=== PATIENT | male | born 1980 | race Caucasian/White ===

== ENCOUNTER 2017-03-23 14:39 | Emergency (ER) | payer BC ==
[2017-03-23 14:44] VITALS: RESP 18
[2017-03-23 15:15] LABS: Basophils # (A) 0.1 k/uL (0-0.2); Basophils % (A) 1 %; Eosinophils # (A) 0.4 k/uL (0-0.7); Eosinophils % (A) 5 %; HCT 44.7 % (39.0-53.0); HDW 2.48; HGB 15.8 gm/dL (13.0-17.5); Luc # (Auto) 0.16; Luc % (Auto) 2; Lymphocytes # (A) 1.5 k/uL (1.0-4.8); Lymphocytes % (A) 17 %; MCH 31.5 pg (25.0-35.0); MCHC 35.3 g/dL (31.0-37.0); MCV 89.2 fL (80.0-100.0); Mean Platelet Volume 7.4; Monocytes # (A) 0.5 k/uL (0-1.0); Monocytes % (A) 6 %; Neutrophils # (A) 6.2 k/uL (1.3-7.7); Neutrophils % (A) 70 %; RBC 5.01 m/uL (4.30-5.90); RDW 12.7 % (11.5-15.5); WBC 8.8 k/uL (3.8-10.6); WBC (Perox) 8.24
--- NOTE | 2017-03-23 15:18 | XR ---
EXAMINATION TYPE: XR chest 2V DATE OF EXAM: 03/23/2017 COMPARISON: NONE HISTORY: Chest pain TECHNIQUE: Frontal and lateral views of the chest are obtained. FINDINGS: There is no focal air space opacity. No evidence for pneumothorax. No pleural effusion. The cardiac silhouette size is within normal limits. The osseous structures are grossly intact. IMPRESSION: 1. No acute cardiopulmonary process.
[2017-03-23 15:26] LABS: ALT 55 U/L (21-72); AST 41 U/L (17-59); Alkaline Phosphatase 98 U/L (38-126); Anion Gap 13 mmol/L; Blood Urea Nitrogen 11 mg/dL (9-20); Calcium 9.8 mg/dL (8.4-10.2); Carbon Dioxide 23 mmol/L (22-30); Chloride 103 mmol/L (98-107); Glucose 92 mg/dL (74-99); Non-African American GFR(MDRD) >60 (>60 ml/min/1.73 sqM); Potassium 4.3 mmol/L (3.5-5.1); Sodium 139 mmol/L (137-145); Total Bilirubin 0.7 mg/dL (0.2-1.3)
--- NOTE | 2017-03-23 16:41 | ED ---
General Adult HPI - General Chief complaint: Chest Pain Stated complaint: Chest Pain Time Seen by Provider: 03/23/17 14:46 Source: patient, RN notes reviewed Mode of arrival: ambulatory Limitations: no limitations - History of Present Illness Initial comments: 36-year-old male with past medical history of anxiety presents with a six-hour history of left-sided chest pain. Patient describes the pain as sharp in nature. Worse with deep inspiration. Patient denies any radiating symptoms. Denies diaphoresis. Does state he has had some shortness of breath and dizziness associated with his chest pain. Constant in nature since 8 AM this morning. Patient is an occasional tobacco user, does not use tobacco daily. No history of DVT or PE. Patient has a family history of CAD in his father in his late 50s. Denies significant alcohol consumption. Patient did not take any pain medication. He called his primary care physician to make an appointment and was instructed to come to the emergency department. - Related Data Home Medications Medication Instructions Recorded Confirmed ALPRAZolam [ALPRAZolam] 1 mg PO DAILY PRN 03/23/17 03/23/17 Clindamycin [Cleocin] 150 mg PO Q6H 03/23/17 03/23/17 HYDROcodone/APAP 5-325MG [[place] 1 tab PO Q4H PRN 03/23/17 03/23/17 5-325] Ibuprofen [Ibuprofen] 600 mg PO Q6H PRN 03/23/17 03/23/17 Previous Rx's Medication Instructions Recorded ALPRAZolam [Xanax] 1 mg PO DAILY PRN #7 tab 03/23/17 Ibuprofen [Motrin] 600 mg PO Q8HR PRN #24 tab 03/23/17 Allergies Allergy/AdvReac Type Severity Reaction Status Date / Time No Known Allergies Allergy Verified 03/23/17 15:25 Review of Systems ROS Statement: Those systems with pertinent positive or pertinent negative responses have been documented in the HPI. ROS Other: All systems not noted in ROS Statement are negative. Constitutional: Denies: fever, chills Respiratory: Denies: cough, hemoptysis Cardiovascular: Reports: chest pain Gastrointestinal: Denies: abdominal pain, nausea, vomiting Past Medical History Past Medical History: No Reported History History of Any Multi-Drug Resistant Organisms: None Reported Past Surgical History: Orthopedic Surgery Additional Past Surgical History / Comment(s): knee Past Psychological History: Anxiety Smoking Status: Light tobacco smoker Past Alcohol Use History: Occasional Past Drug Use History: None Reported General Exam Limitations: no limitations General appearance: alert, in no apparent distress, anxious Head exam: Present: atraumatic, normocephalic Eye exam: Present: PERRL, EOMI ENT exam: Present: normal exam Respiratory exam: Present: normal lung sounds bilaterally. Absent: respiratory distress, wheezes, rales Cardiovascular Exam: Present: regular rate, normal rhythm. Absent: systolic murmur, diastolic murmur GI/Abdominal exam: Present: soft. Absent: distended, tenderness Extremities exam: Absent: pedal edema, calf tenderness Neurological exam: Present: alert, oriented X3 Psychiatric exam: Present: normal affect, normal mood Skin exam: Present: warm, dry Course Vital Signs 03/23/17 03/23/17 14:41 15:47 Temperature 98.6 F Pulse Rate 75 71 Respiratory 18 18 Rate Blood Pressure 140/90 145/87 O2 Sat by Pulse 97 98 Oximetry EKG Findings - EKG Comments: EKG Findings:: EKG obtained at 1450: Normal sinus rhythm with a ventricular rate of 70, TX interval 162, QRS duration 88, QTC is 423, there is no ST segment elevation or depression, no T-wave abnormalities noted. Medical Decision Making - Medical Decision Making 36-year-old male with no significant past medical history presents with sharp anterior left-sided chest pain. Chest pain began while patient was at work. He does have a history of anxiety and has been out of his Xanax for several days. 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 This may be related to some degree of increased anxiety. Patient has no calf swelling, lungs are clear, heart is regular with no murmur or rubs. Patient's in no acute distress. Laboratory studies including troponin and d- dimer are unremarkable. Given the time course of 6 hours and constant symptoms throughout this time a single troponin is sufficient. EKG shows normal sinus rhythm with no ST segment elevation or depression. Chest x-ray is negative for acute intrathoracic process. Diagnosis: Chest pain Patient will follow-up with his primary care physician in the next several days. He is encouraged to return to the emergency department with worsening or changing symptoms. - Lab Data Result diagrams: 03/23/17 15:02 06/28/17 15:02 Lab Results 03/23/17 03/23/17 03/23/17 Range/Units 15:02 15:02 15:02 WBC 8.8 (3.8-10.6) k/uL RBC 5.01 (4.30-5.90) m/uL Hgb 15.8 (13.0-17.5) gm/dL Hct 44.7 (39.0-53.0) % MCV 89.2 (80.0-100.0) fL MCH 31.5 (25.0-35.0) pg MCHC 35.3 (31.0-37.0) g/dL RDW 12.7 (11.5-15.5) % Plt Count 288 (150-450) k/uL Neutrophils % 70 % Lymphocytes % 17 % Monocytes % 6 % Eosinophils % 5 % Basophils % 1 % Neutrophils # 6.2 (1.3-7.7) k/uL Lymphocytes # 1.5 (1.0-4.8) k/uL Monocytes # 0.5 (0-1.0) k/uL Eosinophils # 0.4 (0-0.7) k/uL Basophils # 0.1 (0-0.2) k/uL D-Dimer <0.17 (<0.60) mg/L FEU Sodium 139 (137-145) mmol/L Potassium 4.3 (3.5-5.1) mmol/L Chloride 103 (98-107) mmol/L Carbon Dioxide 23 (22-30) mmol/L Anion Gap 13 mmol/L BUN 11 (9-20) mg/dL Creatinine 0.90 (0.66-1.25) mg/dL Est GFR (MDRD) Af Amer >60 (>60 ml/min/1.73 sqM) Est GFR (MDRD) Non-Af >60 (>60 ml/min/1.73 sqM) Glucose 92 (74-99) mg/dL Calcium 9.8 (8.4-10.2) mg/dL Magnesium 2.0 (1.6-2.3) mg/dL Total Bilirubin 0.7 (0.2-1.3) mg/dL AST 41 (17-59) U/L ALT 55 (21-72) U/L Alkaline Phosphatase 98 (38-126) U/L Troponin I (0.000-0.034) ng/mL Total Protein 8.0 (6.3-8.2) g/dL Albumin 5.0 (3.5-5.0) g/dL 03/23/17 Range/Units 15:02 WBC (3.8-10.6) k/uL RBC (4.30-5.90) m/uL Hgb (13.0-17.5) gm/dL Hct (39.0-53.0) % MCV (80.0-100.0) fL MCH (25.0-35.0) pg MCHC (31.0-37.0) g/dL RDW (11.5-15.5) % Plt Count (150-450) k/uL Neutrophils % % Lymphocytes % % Monocytes % % Eosinophils % % Basophils % % Neutrophils # (1.3-7.7) k/uL Lymphocytes # (1.0-4.8) k/uL Monocytes # (0-1.0) k/uL Eosinophils # (0-0.7) k/uL Basophils # (0-0.2) k/uL D-Dimer (<0.60) mg/L FEU Sodium (137-145) mmol/L Potassium (3.5-5.1) mmol/L Chloride (98-107) mmol/L Carbon Dioxide (22-30) mmol/L Anion Gap mmol/L BUN (9-20) mg/dL Creatinine (0.66-1.25) mg/dL Est GFR (MDRD) Af Amer (>60 ml/min/1.73 sqM) Est GFR (MDRD) Non-Af (>60 ml/min/1.73 sqM) Glucose (74-99) mg/dL Calcium (8.4-10.2) mg/dL Magnesium (1.6-2.3) mg/dL Total Bilirubin (0.2-1.3) mg/dL AST (17-59) U/L ALT (21-72) U/L Alkaline Phosphatase (38-126) U/L Troponin I <0.012 (0.000-0.034) ng/mL Total Protein (6.3-8.2) g/dL Albumin (3.5-5.0) g/dL Disposition Clinical Impression: Pleuritic pain, Chest pain Disposition: HOME SELF-CARE Instructions: Chest Pain (ED) Additional Instructions: Patient will return to the emergency department with worsening or changing symptoms. Prescriptions: ALPRAZolam [Xanax] 1 mg PO DAILY PRN #7 tab PRN Reason: Anxiety Ibuprofen [Motrin] 600 mg PO Q8HR PRN #24 tab PRN Reason: Pain Referrals: Enoc Vegas MD [Primary Care Provider] - 1-2 days
[2017-03-23 16:59] VITALS: BP 138/94; PULSE 80; TEMP 98.7
== END 2017-03-23 16:56 | disposition home or self-care (01) ==
LOC: EC 14:39
DX: R07.81 Pleurodynia (principal); R42 Dizziness and giddiness; R06.02 Shortness of breath; F17.200 Nicotine dependence, unspecified, uncomplicated; Z79.899 Other long term (current) drug therapy
CPT/HCPCS: 36415; 71020; 80053; 83735; 84484; 85025; 85379; 93005; 99285

== ENCOUNTER 2018-07-02 08:04 | Inpatient (IN) | payer BC ==
[2018-07-02] MEDS ORDERED: SODIUM CHLORIDE 0.9% 1,000 ML IV STA (08:11)
--- NOTE | 2018-07-02 08:18 | ED ---
Seizure HPI - General Stated Complaint: Altered Mental Status Time Seen by Provider: 07/02/18 08:04 Source: patient, EMS, RN notes reviewed Mode of arrival: EMS - History of Present Illness Initial Comments: Is a 37-year-old male with a history of anxiety who apparently is being weaned off his medication who was found by his fiance to be gurgling when she found him in the bedroom with possible seizure activity lasting one or 2 minutes. EMS was summoned he was seen to be flailing around in bed briefly and then was very confused for a period of time. No urinary incontinence no tongue biting. No prior history of seizure disorder though he does have a younger brother and had seizure ago. No trauma no drugs or alcohol reported no new exposure to chemicals. 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 He does still somewhat nauseated and lightheaded at this time. He currently is awake and alert. No other modifying factors or complaints at this time MD Complaint: possible seizure - Related Data Home Medications Medication Instructions Recorded Confirmed ALPRAZolam 1 mg PO DAILY PRN 03/23/17 03/23/17 Clindamycin [Cleocin] 150 mg PO Q6H 03/23/17 03/23/17 HYDROcodone/APAP 5-325MG [[place] 1 tab PO Q4H PRN 03/23/17 03/23/17 5-325] Ibuprofen 600 mg PO Q6H PRN 03/23/17 03/23/17 Previous Rx's Medication Instructions Recorded ALPRAZolam [Xanax] 1 mg PO DAILY PRN #7 tab 03/23/17 Ibuprofen [Motrin] 600 mg PO Q8HR PRN #24 tab 03/23/17 Allergies Allergy/AdvReac Type Severity Reaction Status Date / Time No Known Allergies Allergy Verified 03/23/17 15:25 Review of Systems ROS Statement: Those systems with pertinent positive or pertinent negative responses have been documented in the HPI. ROS Other: All systems not noted in ROS Statement are negative. Past Medical History Past Medical History: No Reported History History of Any Multi-Drug Resistant Organisms: None Reported Past Surgical History: Orthopedic Surgery Additional Past Surgical History / Comment(s): knee Past Psychological History: Anxiety Smoking Status: Light tobacco smoker Past Alcohol Use History: Occasional Past Drug Use History: None Reported General Exam - General Exam Comments Initial Comments: This is a well-developed well-nourished awake alert oriented 3 male General appearance: alert, lethargic Head exam: Present: atraumatic, normocephalic, normal inspection Eye exam: Present: normal appearance, PERRL, EOMI. Absent: scleral icterus, conjunctival injection, periorbital swelling ENT exam: Present: normal exam, mucous membranes moist Neck exam: Present: normal inspection. Absent: tenderness, meningismus, lymphadenopathy Respiratory exam: Present: normal lung sounds bilaterally. Absent: respiratory distress, wheezes, rales, rhonchi, stridor Cardiovascular Exam: Present: regular rate, normal rhythm, normal heart sounds. Absent: systolic murmur, diastolic murmur, rubs, gallop, clicks GI/Abdominal exam: Present: soft, normal bowel sounds. Absent: distended, tenderness, guarding, rebound, rigid Extremities exam: Present: normal inspection, full ROM, normal capillary refill. Absent: tenderness, pedal edema, joint swelling, calf tenderness Back exam: Present: normal inspection Neurological exam: Present: alert, oriented X3, CN II-XII intact Psychiatric exam: Present: normal affect, normal mood Skin exam: Present: warm, dry, intact, normal color. Absent: rash Course Vital Signs 07/02/18 08:06 Temperature 98.2 F Pulse Rate 64 Respiratory 16 Rate Blood Pressure 115/61 O2 Sat by Pulse 99 Oximetry - Reevaluation(s) Reevaluation #1: 07/02/18 08:17 Further information the patient has been taking up to 100 pills of antidiarrheal medication per day he did not take any yesterday. This information initially obtained from Talisha garcia nurse Medical Decision Making - Medical Decision Making I did discuss the findings with the patient and his fiance. Patient be admitted for evaluation for seizure - Lab Data Result diagrams: 07/02/18 08:10 07/02/18 08:10 Lab Results 07/02/18 07/02/18 07/02/18 Range/Units 08:10 08:10 08:10 WBC 7.6 (3.8-10.6) k/uL RBC 4.69 (4.30-5.90) m/uL Hgb 13.3 (13.0-17.5) gm/dL Hct 41.0 (39.0-53.0) % MCV 87.3 (80.0-100.0) fL MCH 28.3 (25.0-35.0) pg MCHC 32.5 (31.0-37.0) g/dL RDW 12.8 (11.5-15.5) % Plt Count 274 (150-450) k/uL Neutrophils % 59 % Lymphocytes % 25 % Monocytes % 8 % Eosinophils % 5 % Basophils % 1 % Neutrophils # 4.5 (1.3-7.7) k/uL Lymphocytes # 1.9 (1.0-4.8) k/uL Monocytes # 0.6 (0-1.0) k/uL Eosinophils # 0.4 (0-0.7) k/uL Basophils # 0.0 (0-0.2) k/uL Sodium 140 (137-145) mmol/L Potassium 4.4 (3.5-5.1) mmol/L Chloride 104 (98-107) mmol/L Carbon Dioxide 25 (22-30) mmol/L Anion Gap 11 mmol/L BUN 14 (9-20) mg/dL Creatinine 0.90 (0.66-1.25) mg/dL Est GFR (CKD-EPI)AfAm >90 (>60 ml/min/1.73 sqM) Est GFR (CKD-EPI)NonAf >90 (>60 ml/min/1.73 sqM) Glucose 154 H (74-99) mg/dL Calcium 9.5 (8.4-10.2) mg/dL Magnesium 2.1 (1.6-2.3) mg/dL Total Bilirubin 0.4 (0.2-1.3) mg/dL AST 37 (17-59) U/L ALT 30 (21-72) U/L Alkaline Phosphatase 152 H (38-126) U/L Total Creatine Kinase 98 (55-170) U/L CK-MB (CK-2) 0.8 (0.0-2.4) ng/mL CK-MB (CK-2) Rel Index 0.8 Troponin I <0.012 (0.000-0.034) ng/mL Total Protein 7.6 (6.3-8.2) g/dL Albumin 4.2 (3.5-5.0) g/dL TSH 2.240 (0.465-4.680) mIU/L Salicylates <1.0 mg/dL Urine Opiates Screen (NotDetected) Ur Oxycodone Screen (NotDetected) Urine Methadone Screen (NotDetected) Ur Propoxyphene Screen (NotDetected) Acetaminophen <10.0 ug/mL Ur Barbiturates Screen (NotDetected) U Tricyclic Antidepress (NotDetected) Ur Phencyclidine Scrn (NotDetected) Ur Amphetamines Screen (NotDetected) U Methamphetamines Scrn (NotDetected) U Benzodiazepines Scrn (NotDetected) Urine Cocaine Screen (NotDetected) U Marijuana (THC) Screen (NotDetected) Serum Alcohol <10 mg/dL 07/02/18 Range/Units 08:10 WBC (3.8-10.6) k/uL RBC (4.30-5.90) m/uL Hgb (13.0-17.5) gm/dL Hct (39.0-53.0) % MCV (80.0-100.0) fL MCH (25.0-35.0) pg MCHC (31.0-37.0) g/dL RDW (11.5-15.5) % Plt Count (150-450) k/uL Neutrophils % % Lymphocytes % % Monocytes % % Eosinophils % % Basophils % % Neutrophils # (1.3-7.7) k/uL Lymphocytes # (1.0-4.8) k/uL Monocytes # (0-1.0) k/uL Eosinophils # (0-0.7) k/uL Basophils # (0-0.2) k/uL Sodium (137-145) mmol/L Potassium (3.5-5.1) mmol/L Chloride (98-107) mmol/L Carbon Dioxide (22-30) mmol/L Anion Gap mmol/L BUN (9-20) mg/dL Creatinine (0.66-1.25) mg/dL Est GFR (CKD-EPI)AfAm (>60 ml/min/1.73 sqM) Est GFR (CKD-EPI)NonAf (>60 ml/min/1.73 sqM) Glucose (74-99) mg/dL Calcium (8.4-10.2) mg/dL Magnesium (1.6-2.3) mg/dL Total Bilirubin (0.2-1.3) mg/dL AST (17-59) U/L ALT (21-72) U/L Alkaline Phosphatase (38-126) U/L Total Creatine Kinase (55-170) U/L CK-MB (CK-2) (0.0-2.4) ng/mL CK-MB (CK-2) Rel Index Troponin I (0.000-0.034) ng/mL Total Protein (6.3-8.2) g/dL Albumin (3.5-5.0) g/dL TSH (0.465-4.680) mIU/L Salicylates mg/dL Urine Opiates Screen Not Detected (NotDetected) Ur Oxycodone Screen Not Detected (NotDetected) Urine Methadone Screen Not Detected (NotDetected) Ur Propoxyphene Screen Not Detected (NotDetected) Acetaminophen ug/mL Ur Barbiturates Screen Not Detected (NotDetected) U Tricyclic Antidepress Not Detected (NotDetected) Ur Phencyclidine Scrn Not Detected (NotDetected) Ur Amphetamines Screen Not Detected (NotDetected) U Methamphetamines Scrn Not Detected (NotDetected) U Benzodiazepines Scrn Detected H (NotDetected) Urine Cocaine Screen Not Detected (NotDetected) U Marijuana (THC) Screen Not Detected (NotDetected) Serum Alcohol mg/dL - EKG Data -: EKG Interpreted by Pr EKG shows normal: sinus rhythm (Normal sinus rhythm of 70. Interval 200 QRS duration 112 QT since QTC 366/395 nonspecific T-wave configuration.) - Radiology Data Radiology results: report reviewed (I did review the imaging and report no acute findings.), image reviewed Disposition Clinical Impression: Seizure Disposition: ADMITTED IP TO THIS [facility] Condition: Stable Referrals: Enoc Vegas MD [Primary Care Provider] - 1-2 days
[2018-07-02 08:37] LABS: Basophils % (A) 1 %; Eosinophils # (A) 0.4 k/uL (0-0.7); Eosinophils % (A) 5 %; HGB 13.3 gm/dL (13.0-17.5); Lymphocytes # (A) 1.9 k/uL (1.0-4.8); Lymphocytes % (A) 25 %; MCH 28.3 pg (25.0-35.0); MCHC 32.5 g/dL (31.0-37.0); MCV 87.3 fL (80.0-100.0); Mean Platelet Volume 6.8; Monocytes # (A) 0.6 k/uL (0-1.0); Monocytes % (A) 8 %; Neutrophils # (A) 4.5 k/uL (1.3-7.7); Neutrophils % (A) 59 %; Platelet Count 274 k/uL (150-450); RBC 4.69 m/uL (4.30-5.90); RDW 12.8 % (11.5-15.5); WBC 7.6 k/uL (3.8-10.6)
[2018-07-02 08:45] LABS: ALT 30 U/L (21-72); AST 37 U/L (17-59); Acetaminophen <10.0 ug/mL; Albumin 4.2 g/dL (3.5-5.0); Alcohol <10 mg/dL; Alkaline Phosphatase 152 U/L (38-126); Anion Gap 11 mmol/L; Blood Urea Nitrogen 14 mg/dL (9-20); Calcium 9.5 mg/dL (8.4-10.2); Carbon Dioxide 25 mmol/L (22-30); Chloride 104 mmol/L (98-107); Glucose 154 mg/dL (74-99); Magnesium 2.1 mg/dL (1.6-2.3); Potassium 4.4 mmol/L (3.5-5.1); Salicylate <1.0 mg/dL; Sodium 140 mmol/L (137-145); Total Bilirubin 0.4 mg/dL (0.2-1.3); Total Protein 7.6 g/dL (6.3-8.2)
--- NOTE | 2018-07-02 09:01 | CT ---
EXAMINATION TYPE: CT brain wo con DATE OF EXAM: 07/02/2018 COMPARISON: NONE HISTORY: Seizure CT DLP: 1036 mGycm Automated exposure control for dose reduction was used. FINDINGS: Central structures are midline. There is no evidence of hydrocephalus. No acute focal lesion, mass ef fect or midline shift is seen. I do not see evidence of intracranial blood. There is mucoperiosteal thickening involving all of the sinuses. This is worse in the ethmoid sinuses . The mastoid air cells are clear. The bony calvarium is intact. IMPRESSION: 1. NO ACUTE INTRACRANIAL ABNORMALITY. 2. CHRONIC PANSINUSITIS.
--- NOTE | 2018-07-02 09:05 | XR ---
EXAMINATION TYPE: XR chest 2V DATE OF EXAM: 07/02/2018 HISTORY: cough. REFERENCE: Previous study dated 03/23/2017. FINDINGS: The lungs are clear. Pleural space are clear. The heart is not enlarged. IMPRESSION: NORMAL CHEST.
[2018-07-02 09:17] LABS: Creatine Kinase 98 U/L (55-170)
[2018-07-02 09:30] LABS: Creatine Kinase MB 0.8 ng/mL (0.0-2.4); Troponin I <0.012 ng/mL (0.000-0.034)
[2018-07-02 10:15] LABS: Cocaine Screen,Urine Not Detected (NotDetected); Opiate Screen,Urine Not Detected (NotDetected); Phencyclidine Screen,Urine Not Detected (NotDetected); Urn Cannabinoid Scrn Not Detected (NotDetected)
[2018-07-02 10:16] LABS: Amphetamine Screen,Urine Not Detected (NotDetected); Barbiturate Screen,Urine Not Detected (NotDetected); Benzodiazepines Screen,Urine Detected (NotDetected); Methadone Screen, Urine Not Detected (NotDetected); Oxycodone Screen, Urine Not Detected (NotDetected); Tricyclic Antidepressant,Urine Not Detected (NotDetected)
[2018-07-02 10:17] LABS: Appearance,Urine Clear (Clear); Bacteria,Urine Many /hpf; Bilirubin,Urine Negative (Negative); Blood,Urine Negative (Negative); Color,Urine Yellow; Glucose,Urine (UA) Negative (Negative); Ketones,Urine Negative (Negative); Leukocyte Esterase,Urine Negative (Negative); Nitrite,Urine Negative (Negative); Protein,Urine 3+ (Negative); RBC,Urine 2 /hpf (0-5); Specific Gravity,Urine 1.011 (1.001-1.035); Sperm,Urine Many /hpf; Urobilinogen,Urine <2.0 mg/dL (<2.0)
[2018-07-02] MEDS ORDERED: NALOXONE 0.4 MG/ML 1 ML VIAL IV PRN (10:18)
[2018-07-02] MEDS ORDERED: ACETAMINOPHEN TAB 325 MG TAB PO PRN (10:18)
[2018-07-02] MEDS ORDERED: ALPRAZolam 1 MG TAB PO PRN (10:21)
[2018-07-02] MEDS ORDERED: LORazepam 2 MG/ML INJ IV PRN ×3 (11:35→23:55)
[2018-07-02] MEDS: SODIUM CHLORIDE 0.9% 1,000 ML IV SCH (13:03)
[2018-07-02] MEDS ORDERED: VENLAFAXINE HCL ER 150 MG CAP PO SCH (13:30)
[2018-07-02 22:31] LABS: Glucose,Whole Blood 116 mg/dL (75-99)
[2018-07-02 23:12] LABS: Glucose,Whole Blood 225 mg/dL (75-99)
[2018-07-02 23:21] LABS: HGB 13.4 gm/dL (13.0-17.5); MCH 30.3 pg (25.0-35.0); MCHC 35.3 g/dL (31.0-37.0); Mean Platelet Volume 6.6; Platelet Count 286 k/uL (150-450); RBC 4.42 m/uL (4.30-5.90); RDW 12.9 % (11.5-15.5); WBC 9.2 k/uL (3.8-10.6)
[2018-07-02] MEDS ORDERED: LORazepam 2 MG/ML INJ IV STA (23:29)
[2018-07-02] MEDS ORDERED: EMPTY BAG 1 BAG with PROPOFOL 1,000 MG IV SCH (23:30)
[2018-07-02] MEDS: CLEVIDIPINE BUTYRATE 25 MG in EMPTY BAG 1 BAG IV SCH (23:30)
[2018-07-02 23:33] LABS: Prothrombin Time 9.7 sec (9.0-12.0)
--- NOTE | 2018-07-02 23:34 | HP ---
HISTORY AND PHYSICAL DATE OF SERVICE: 07/02/2018. PRESENTING COMPLAINT: Seizure. HISTORY OF PRESENTING COMPLAINT: This is a very pleasant 37-year-old patient of Dr. Vegas. Only chronic stable conditions are that of anxiety, which patient takes Effexor and some Xanax p.r.n. The patient, in the remote past, had done heroin and then stopped that. The patient for about a month started doing Imodium AD, close to 100 tablets a day, giving a high. The patient did not take any yesterday, went to game with his friend. Had a few beers there and then came home. The patient went to lie down. Patient did wake up a few times. The patient, who lives with his fiance, noticed that the patient's eyes had become wide open, hands with clenched, he had turned blue. She called 911. When EMS arrived the patient was confused, agitated, diaphoretic. The patient's fiance hear the patient making some gurgling sounds from his airway. She was not able, at that time , to wake him up. Then patient was brought to the ER. When I spoke to the patient this afternoon he was feeling to his baseline. He did not want me to convey any of this information to his fiance. Neurology was consulted. The patient was in seizure precautions. Denies any prior head injury. Drinks alcohol only occasionally. REVIEW OF SYSTEMS: CONSTITUTIONAL: None. HEENT: None. RESPIRATORY: None. GASTROINTESTINAL: Denies. MUSCULOSKELETAL: None. DERMATOLOGIC: None. HEMATOLOGIC: None. LYMPHATIC: None. PSYCHIATRY: Anxiety. NEUROLOGIC: As above. PAST MEDICAL HISTORY: Some panic attacks. Possible seizure in the past, unclear. PAST SURGICAL HISTORY: Adenoidectomy, orthopedic surgery, tonsillectomy. SOCIAL HISTORY: Smokes anywhere from 1 to 5 cigarettes a day. Works at [employer]. Lives with his fiancee. Has been abusing Imodium AD for the last one month, about 100 tablets a day. FAMILY HISTORY: Seizure disorder, back problems, heart condition. HOME MEDICATIONS: Effexor XR 150 mg a day, Imodium, vitamin C 500 mg a day, Tylenol 650 mg every 4 p.r.n., Xanax 0.5 to 1 mg p.r.n. ALLERGIES: None. PHYSICAL EXAMINATION: Vital signs on presentation, temperature 98.2, pulse 64, respirations 16, blood pressure 105/61, pulse 99 percent room air. GENERAL: Average built, sitting up, comfortable. EYES: Pupils are normal. Conjunctivae normal. HEENT: External nose and ears normal. Oral cavity normal. NECK: JVD not raised. Mass not palpable. Respiratory effort normal. LUNGS: Clear. CARDIOVASCULAR: 1st and 2nd heart sounds. No edema. ABDOMEN: Soft, nontender. Liver and spleen not palpable. LYMPHATIC: No lymph nodes palpable in neck or axillae. PSYCHIATRY: Alert and oriented x3. Mood and affect normal. NEUROLOGIC: Pupils equal. Cranial nerves grossly intact. Power and sensation grossly intact. INVESTIGATIONS: White count 7.6, hemoglobin 13.3, potassium 4.4. BUN and creatinine normal. Glucose 154. Troponin negative. Negative urine drug screen. Positive for benzodiazepine. EKG nonspecific sinus rhythm. CT scan of the brain, not acute. Chest x-ray normal. ASSESSMENT: 1. This is a patient who presented with what appeared to be seizure-like activity and the patient has been taking about 100 Imodium AD per day, stopping it for 24 hours. There is a questionable history of seizure in the past. Neuro checks will be done. Seizure precautions. Neurology is being consulted. 2. 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 3. Chronic anxiety disorder. The patient takes medication for the same. PLAN: The patient was counseled at length about not using recreational medications including these drugs. Awaiting input from Neurology. MMMIKHAILL / KIARRAN: [phone] /
[2018-07-02 23:35] LABS: ALT 116 U/L (21-72); AST 155 U/L (17-59); Albumin 4.1 g/dL (3.5-5.0); Alkaline Phosphatase 143 U/L (38-126); Anion Gap 12 mmol/L; Blood Urea Nitrogen 13 mg/dL (9-20); Carbon Dioxide 25 mmol/L (22-30); Chloride 104 mmol/L (98-107); Glucose 191 mg/dL (74-99); Magnesium 2.8 mg/dL (1.6-2.3); Phosphorus 3.4 mg/dL (2.5-4.5); Potassium 3.1 mmol/L (3.5-5.1); Sodium 141 mmol/L (137-145); Total Bilirubin 0.3 mg/dL (0.2-1.3); Total Protein 7.2 g/dL (6.3-8.2)
[2018-07-02] MEDS: DEXTROSE 5% IN WATER 1,000 ML with SODIUM BICARB (1 MEQ/ML) 150 ML IV SCH (23:35)
[2018-07-02 23:38] LABS: ABG PH 7.41 (7.35-7.45)
[2018-07-02 23:39] LABS: ABG Base Excess 2.1 mmol/L; ABG HCO3 27 mmol/L (21-25); ABG PCO2 43 mmHg (35-45); ABG PO2 87 mmHg (83-108); ABG TCO2 28 mmol/L (19-24)
[2018-07-02 23:40] LABS: ABG Oxygen Saturation 97.1 % (94-97)
[2018-07-02] MEDS ORDERED: Potassium Replacement Protocol 1 EACH MISC MISCELLANE PRN (23:44)
--- NOTE | 2018-07-02 23:49 | XR ---
EXAMINATION TYPE: XR chest 1V portable DATE OF EXAM: 07/02/2018 COMPARISON: 03/23/2017 HISTORY: Check tube placement TECHNIQUE: Single frontal view of the chest is obtained. FINDINGS: Endotracheal tube is 3 cm from the gary. Nasogastric tube is in good position. There is some atelectasis in the left lower lobe. There is no heart failure. IMPRESSION: Tubing in good position. There is new atelectasis in left lower lobe compared to old exa m.
[2018-07-02] MEDS ORDERED: levETIRAcetam IV 1,000 MG in SALINE 1 100ML.BAG IVPB STA (23:51)
[2018-07-02 23:53] LABS: Creatine Kinase MB 0.7 ng/mL (0.0-2.4); Troponin I <0.012 ng/mL (0.000-0.034)
[2018-07-03] MEDS ORDERED: MIDAZOLAM 1 MG/ML 5 ML VIAL IV STA (00:07)
[2018-07-03] MEDS ORDERED: CISATRACURIUM 2 MG/ML 5 ML VIAL IV ONE (00:08)
[2018-07-03] MEDS ORDERED: CISATRACURIUM 2 MG/ML 5 ML VIAL IV STA (00:09)
[2018-07-03 00:22] LABS: Creatine Kinase 94 U/L (55-170)
[2018-07-03] MEDS ORDERED: MIDAZOLAM 2 MG/2 ML VIAL IV STA (00:28)
[2018-07-03] MEDS: CLEVIDIPINE BUTYRATE 25 MG in EMPTY BAG 1 BAG IV SCH (00:32)
[2018-07-03] MEDS: PANTOPRAZOLE 40 MG/10 ML VIAL IVP SCH ×2 (00:38→09:20)
[2018-07-03] MEDS: PROPOFOL 1,000 MG in EMPTY BAG 1 BAG IV SCH ×7 (00:40→23:24)
[2018-07-03] MEDS: SODIUM CHLORIDE 0.9% 1,000 ML IV SCH ×4 (00:42→19:40)
[2018-07-03] MEDS: MIDAZOLAM HCL 100 MG in SODIUM CHLORIDE 0.9% 80 ML IV SCH ×3 (00:44→18:28)
[2018-07-03] MEDS: POTASSIUM BICARBONATE/CIT AC 20 MEQ TABLET.EFF NG-TUBE SCH ×2 (00:48→01:24)
[2018-07-03] MEDS: HEPARIN SODIUM,PORCINE 5,000 UNIT/ML 1 ML VIAL SQ SCH ×3 (00:49→16:29)
--- NOTE | 2018-07-03 01:26 | P.CNNES ---
History of Present Illness Consult date: 07/02/18 Reason for Consult: Patient admitted with possible new onset seizure. History of Present Illness: This patient is a 37 year old right handed male who was admitted to the hospital today for altered mental status and possible seizure. The patient states that he was at home yesterday and noticed that he was experiencing some numbness in his hands and was not sure of the reason. He states that he went to the [employer] [facility] football game yesterday and notebind that he was having some shortness of breath when climbing up the bleechers to the top of the stadium. He found this to be unusual for him, as he felt he was in good physical shape. He went to bed last night as usual and apparently he was fine until early this morning at around 7 am he was found by his fiancee to be gurgling and apparently stiff with his eye rolled back into his head. His fiancee called for EMS who arrived and found him to be confused for some time. The patient states that his financee told him that this seizure like event lasted 1-2 minutes in duration. He did not have any loss of control of bowel or bladder. He did not bite his tongue. 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 He denies ever having a seizure in his life and never had febrile seizures. He denied ever having any head injury or major trauma in the past. He does mention that there is some family history of seizure, as his younger brother had seizures. The patient was transported by EMS to the ER at [facility] for further evaluation. The patient was seen in the ER by Dr. Smart and he seemed to be much more responsive and able to answer all questions. He did have some mild nausea in the ER. He was sent for a CT Scan of the brain for further evaluation and this revealed no acute intracranial abnormality. There was some chronic sinusitis. He returned to the ER and he was questioned by an ER nurse as to further deatails regarding his history. He apparently told the ER nurse that he had taken 100 pills of the antidiarrheal Lomotil earlier in an attempt to get high. Apparently he told the ER nurse he was taking almost daily but not taken yesterday. This information was passed on to Dr. Smart his ER physician as well. This information was not conveyed to his fiancee as per the wishes of the the patient. We have mentioned to the patient that he has no obvious cause to have a seizure, but now knowing about the drug overdose, this could have percipitated the seizure. The patient does not want us convey any of this drug use information to his fiancee. We have recommended that the patient undergo an EEG test tommorow for further evaluation of possible seizure disorder. We may also recommend an MRI Brain to be done for this same reason. The patient was also advised of the [facility] driving law that states the patient cannot drive in the [facility] for a period of 6 months and that he remains seizure free. He should also not operate power tools or climb ladders or do any activity that would endanger his life. The patient acknowledges that he is now aware of these restrictions as it pertains to seizures. His history is strongly suggesting that he may of had a secondary seizure due to his use of Lomotil as a drug overdose. We have explained to the patient regardless as to the cause of the seizure he still cannot drive for 6 months. The patient is very clear as to how long he has been taking Lomotil as a recreational drug. According to his nurse, the patient had a long discussion today with Dr. Benitez and we will need to talk to him more to help clarify these points. Review of urine drug screen was positive only for benzodiazepines. Patient use of smoking marijuna in the past. The patient seems to very remorseful today in that he thinks he should never use Lomtil again to get high. We will obtain an EEG and an MRI brain tomorrow for further evaluation of this patient. If his EEG is abnormal, then he will require treatment with an AED. We will continue with seizure precautions and close monitoring during his hospital stay. We have answered all of the patient's questions in detail today. We will continue close monitoring of this patient. Review of Systems Constitutional: Denies chills, Denies fever Eyes: denies blurred vision, denies pain Ears, nose, mouth and throat: Denies headache, Denies sore throat Cardiovascular: Denies chest pain, Denies shortness of breath Respiratory: Denies cough Gastrointestinal: Denies abdominal pain, Denies diarrhea, Denies nausea, Denies vomiting Musculoskeletal: Denies myalgias Integumentary: Denies pruritus, Denies rash Neurological: Reports change in mentation, Reports convulsions, Reports seizures , Denies numbness, Denies weakness Psychiatric: Denies anxiety, Denies depression Endocrine: Denies fatigue, Denies weight change Past Medical History Past Medical History: No Reported History Additional Past Medical History / Comment(s): possible panic attack, possible seizure while in hospital in [place]. History of Any Multi-Drug Resistant Organisms: None Reported Past Surgical History: Adenoidectomy, Orthopedic Surgery, Tonsillectomy Additional Past Surgical History / Comment(s): knee Past Anesthesia/Blood Transfusion Reactions: No Reported Reaction Past Psychological History: Anxiety Smoking Status: Current every day smoker Past Alcohol Use History: Occasional Past Drug Use History: None Reported - Past Family History Mother Family Medical History: Seizure Disorder Father Additional Family Medical History / Comment(s): back problems, possible heart condition. Medications and Allergies Home Medications Medication Instructions Recorded Confirmed Type ALPRAZolam 0.5 - 1 mg PO DAILY PRN 03/23/17 07/02/18 History Acetaminophen [Tylenol] 650 mg PO Q4H PRN 07/02/18 07/02/18 History Ascorbic Acid [Vitamin C] 500 mg PO DAILY 07/02/18 07/02/18 History Loperamide [Imodium] 2 mg PO QID PRN 07/02/18 07/02/18 History Venlafaxine HCl ER [Effexor Xr] 150 mg PO DAILY 07/02/18 07/02/18 History Allergies Allergy/AdvReac Type Severity Reaction Status Date / Time No Known Allergies Allergy Verified 07/02/18 10:45 Physical Examination - Vital Signs Vital Signs: Vital Signs Temp Pulse Pulse Resp BP BP Pulse Ox 07/02/18 13:30 97.7 F 55 L 16 111/62 100 07/02/18 11:34 57 L 18 114/62 98 07/02/18 10:45 98.0 F 69 16 111/68 99 07/02/18 10:06 71 18 118/73 99 07/02/18 09:06 67 18 112/63 99 07/02/18 08:06 98.2 F 64 16 115/61 99 Intake and Output 07/02/18 07/02/18 07/02/18 06:59 14:59 22:59 Other: # Voids 1 Weight 92.9 kg - Constitutional General appearance: average body habitus, cooperative - EENT EENT: PERRL, mucous membranes moist - Respiratory Respiratory: lungs clear, normal breath sounds - Cardiovascular Cardiovascular: regular rate, normal S1, normal S2 Extremities: no peripheral edema bilaterally - Gastrointestinal Gastrointestinal: normoactive bowel sounds - Integumentary Integumentary: normal - Neurologic Cranial nerve examination: PERRL, EOMI, VFF, V1/V2/V3 grossly intact, face symmetric, intact shoulder shrug, intact gag reflex, intact cough reflex, intact corneal reflex, normal palatal elevation Speech examination: intact Sensorimotor examination: intact Motor examination - right side: 4/5: biceps, triceps, wrist flexion, wrist extension, sisal operator, hip flexors, knee extensors, dorsiflexion, toe extension (EHL) , plantarflexion Motor examination - left side: 4/5: biceps, triceps, wrist flexion, wrist extension, sisal operator, hip flexors, knee extensors, dorsiflexion, toe extension (EHL) , plantarflexion Detailed sensory examination: intact Reflex and gait examination: intact Reflexes: 1+: ankle, bicep, knee, tricep - Musculoskeletal Musculoskeletal: no pain - Psychiatric Psychiatric: mood/affect appropriate, cooperative Results - Laboratory Findings CBC and BMP: 07/02/18 23:04 07/02/18 23:04 Abnormal Lab Findings: Abnormal Labs 07/02/18 07/02/18 08:10 08:10 Glucose 154 H Alkaline Phosphatase 152 H Urine Protein 3+ H Urine Bacteria Many H Urine Sperm Many H U Benzodiazepines Scrn Detected H Assessment and Plan (1) New onset seizure Current Visit: Yes Status: Acute Code(s): R56.9 - UNSPECIFIED CONVULSIONS SNOMED Code(s): 57124225 (2) Drug use Current Visit: Yes Status: Acute Code(s): F19.90 - OTHER PSYCHOACTIVE SUBSTANCE USE, UNSPECIFIED, UNCOMPLICATED SNOMED Code(s): 598290359 Plan: This patient is admitted to [facility] today for evaluation of altered mental status and possible seizure. The patient had what was described to him by his fiancee as a 1-2 minute seizure where he was gurgling and unresponsive. He was slowly coming around by the time EMS had arrived at his home. Patient was seen in the ER by Dr. Smart and had a CT Scan of the brain done and was negative for any acute findings. Patient mentioned to the ER nurse Ms. Doe that he had been taking upto 100 Lomotil pills per day. He did not take any pills yesterday however. Patient had no previous history of seizures and head trauma. He did attend a football game yesterday and complained of having some shortness of breath. He is now admitted and we have recommended for hime to have an EEG tomorrow and an MRI of the brain for further evaluation. We will contiunue with seizure precautions and close monitoring. The patient is aware of the [place] driving laws as it pertains to seizure disorders. He cannot drive for 6 months and avoid operating machinery or climb on ladders. Patient is aware of these restrictions and will comply. We will further recommendations depending on the test results. His overall prognosis remains guarder. Time with Patient: Greater than 30
--- NOTE | 2018-07-03 01:52 | CT ---
EXAMINATION TYPE: CT brain wo con DATE OF EXAM: 07/03/2018 COMPARISON: Yesterday HISTORY: Prior on synapse. seizure, unresponsive, arrest CT DLP: 1047.10 mGycm. Automated Exposure Control for Dose Reduction was Utilized. TECHNIQUE: CT scan of the head is performed without contrast. FINDINGS: Ventricles have normal size. There is no mass effect nor midline shift. There is no sign of intracranial hemorrhage. The calvarium is intact. There is mucosal thickening in the ethmoid air hitesh ls. There is similar change in the sphenoid sinus. IMPRESSION: Negative CT scan of the brain. Sinusitis. No change compared to yesterday.
[2018-07-03 03:04] LABS: Amorphous Sediment,Urine Occasional /hpf; Appearance,Urine Turbid (Clear); Bacteria,Urine Few /hpf; Bilirubin,Urine Negative (Negative); Blood,Urine Negative (Negative); Color,Urine Yellow; Glucose,Urine (UA) Negative (Negative); Ketones,Urine Negative (Negative); Leukocyte Esterase,Urine Moderate (Negative); Mucus,Urine Few /hpf; Nitrite,Urine Negative (Negative); PH, Urine 5.5 (5.0-8.0); Protein,Urine 1+ (Negative); RBC,Urine 11 /hpf (0-5); Specific Gravity,Urine 1.026 (1.001-1.035); Urobilinogen,Urine <2.0 mg/dL (<2.0)
[2018-07-03 04:50] LABS: Basophils % (A) 0 %; Eosinophils # (A) 0.1 k/uL (0-0.7); Eosinophils % (A) 1 %; HCT 37.6 % (39.0-53.0); HGB 12.5 gm/dL (13.0-17.5); Lymphocytes % (A) 8 %; MCH 29.5 pg (25.0-35.0); MCHC 33.4 g/dL (31.0-37.0); MCV 88.4 fL (80.0-100.0); Mean Platelet Volume 6.8; Monocytes # (A) 0.8 k/uL (0-1.0); Monocytes % (A) 6 %; Neutrophils # (A) 10.5 k/uL (1.3-7.7); Neutrophils % (A) 85 %; Platelet Count 227 k/uL (150-450); RBC 4.25 m/uL (4.30-5.90); RDW 12.9 % (11.5-15.5); WBC 12.4 k/uL (3.8-10.6)
[2018-07-03 05:17] LABS: Anion Gap 10 mmol/L; Blood Urea Nitrogen 14 mg/dL (9-20); Calcium 8.6 mg/dL (8.4-10.2); Carbon Dioxide 24 mmol/L (22-30); Chloride 105 mmol/L (98-107); Glucose 108 mg/dL (74-99); Magnesium 2.4 mg/dL (1.6-2.3); Phosphorus 2.8 mg/dL (2.5-4.5); Potassium 4.5 mmol/L (3.5-5.1); Sodium 139 mmol/L (137-145)
[2018-07-03 05:42] LABS: ABG Base Excess 7.5 mmol/L; ABG HCO3 31 mmol/L (21-25); ABG PCO2 41 mmHg (35-45); ABG PH 7.49 (7.35-7.45); ABG PO2 320 mmHg (83-108); ABG TCO2 32 mmol/L (19-24)
[2018-07-03 06:05] LABS: Glucose,Whole Blood 100 mg/dL (75-99)
--- NOTE | 2018-07-03 07:14 | XR ---
EXAMINATION TYPE: XR chest 1V DATE OF EXAM: 07/03/2018 COMPARISON: 07/02/2018 HISTORY: Line placement. Ventilatory dependent respiratory failure. TECHNIQUE: Single frontal view of the chest is obtained. FINDINGS: Endotracheal tube is slightly cephalad in the prior, however this could be related to darin ent's head positioning. Enteric tube is appropriately placed. There is a worsening retrocardiac opaci ty with new obscuration of the left costophrenic angle. Remainder the lungs are clear. Cardiomediasti nal silhouette is mildly enlarged. No pulmonary vascular congestion. IMPRESSION: 1. New obscuration of the left costophrenic angle likely relating to a new small pleural effusion. Pe rsistent retrocardiac opacity may represent atelectasis and/or pneumonia. 2. Cephalad position of the endotracheal tube in comparison the prior, possibly related to patient he ad positioning. Attention on follow-up exams.
--- NOTE | 2018-07-03 08:43 | P.PN ---
Subjective Progress Note Date: 07/03/18 This patient is a 37-year-old right-handed white male who was seen in neurology consultation yesterday afternoon on the fourth floor at [facility] for evaluation of possible new onset seizure activity. Patient was evaluated yesterday afternoon and was recommended close monitoring for workup of new onset of seizure activity. As noted yesterday on his initial presentation the patient had a possible witnessed seizure at home yesterday morning which was noted by his fiance. Apparently she found him in bed and was gurgling with his eyes rolled up into his head and unresponsive. EMS was immediately called to the home and he was found to be postictal when they had arrived. Patient was then transferred by EMS to the emergency room at [facility] for further evaluation. He was seen in the ER yesterday by Dr. Smart. He was sent for a computed tomography scan of the brain yesterday which failed to reveal any acute changes. He was admitted to the medical surgical floor for further evaluation. As noted he underwent neurological consultation yesterday afternoon and we had recommended that he undergo EEG as well as MRI of the brain. Apparently the patient was going to the bathroom at about 10:30 PM yesterday evening and suddenly became severely bradycardic. Heart rate dropped into the 40's. A code was called and when the ICU staff arrived they found the patient to be in ventricular fibrillation. He was shocked once and apparently they were able to resuscitate him at that time. Apparently the fourth floor nursing staff had started CPR for this patient even prior to the team arriving on the fourth floor. The patient apparently then had seizure-like activity was given 2 doses of Ativan. He was intubated and then transferred to the intensive care unit where he was closely monitored for the next hour as he was unresponsive. The ICU nurse did contact Dr. Donnelly yesterday evening regarding his transferred to the ICU. We immediately gave orders to load the patient with IV Keppra for seizure prophylaxis. Patient is currently on Keppra and is receiving a maintenance dose of IV Keppra 750 mg IV piggyback every 12 hours. The patient was stabilized and placed on IV Diprivan. Poison control was contacted and apparently they did give some instructions to the ICU nursing staff in regards to further management. The patient is now currently seen in the intensive care unit this morning at 8 AM and he is currently intubated on the ventilator and is showing some movement spontaneously. He does not appear to have any active seizure like activity noted at this time at bedside. The building services technician is in the room and will be performing his EEG this morning. According to the ICU nursing staff who is monitoring him today in the ICU he has remained very stable overnight. He has had no evidence of breakthrough seizures. He is currently receiving Keppra 750 mg IV piggyback every 12 hours. We've asked for a stat Keppra level to be done this morning. We are waiting cardiology consultation regarding this patient's overall cardiac status. As noted yesterday the patient did complain of shortness of breath on Tuesday when he was at a football game. We will need to await further evaluation and recommendations from cardiology in regards to his overall cardiac status. After the patient was intubated and stabilized in the intensive care unit early this morning he was sent for a follow-up computed tomography scan of the brain. This was completed early this morning at 1:48 AM. The results of the CAT scan indicated no acute findings and was reported negative. There was evidence of sinusitis. No changes compared to the study that was done the day before. The patient is currently evaluated in the intensive care unit. He is currently intubated and is on a Diprivan drip at a rate of 30 mics per kilogram per minute. We are waiting further consultation today from pulmonary critical care medicine and cardiology in regards to this patient's overall condition and prognosis. According to the ICU nursing staff they have informed the patient's fianc of his changes yesterday and that he is now intubated and transferred to the intensive care unit for close monitoring. There was no family members available this morning at bedside to discuss his overall condition and prognosis. We will continue to follow his progress closely in the intensive care unit. His overall condition and prognosis at this time remains very guarded. Objective - Vital Signs Vital signs: Vital Signs Temp 98.9 F 07/03/18 04:00 Pulse 56 L 07/03/18 07:00 Resp 18 07/03/18 07:00 BP 87/44 07/03/18 07:00 Pulse Ox 100 07/03/18 07:00 Intake & Output 07/02/18 07/03/18 07/03/18 18:59 06:59 18:59 Intake Total 1931.417 Output Total 895 Balance 1036.417 Weight 92.9 kg 93.9 kg Intake: IV 1740 Clevidipine Butyrate 25 5 mg In Empty Bag 1 bag @ 1 MG/HR 2 mls/hr IV .Q24H ATUL Rx#:[id number] Dextrose 5% in Water 1, 800 000 ml @ 100 mls/hr IV . [id number] ATUL with Sodium Bicarb (1 Meq/ml) 150 ml Rx#:[id number] Midazolam HCl 100 mg In 35 Sodium Chloride 0.9% 80 ml @ 5 MG/HR 5 mls/hr IV .Q20H ATUL Rx#:[id number] Sodium Chloride 0.9% 1, 800 000 ml @ 100 mls/hr IV . Q10H ATUL Rx#:[id number] levETIRAcetam IV 1,000 mg 100 In Saline 1 100ml.bag @ 400 mls/hr IVPB ONCE STA Rx#:[id number] Intake, IV Titration 191.417 Amount Clevidipine Butyrate 25 9.400 mg In Empty Bag 1 bag @ 1 MG/HR 2 mls/hr IV .Q24H AUTL Rx#:[id number] Propofol 1,000 mg In 182.017 Empty Bag 1 bag @ Titrate IV .Q0M ATUL Rx#: [id number] Output: Gastric Drainage 250 Urine 645 Other: Voiding Method Indwelling Catheter # Voids 1 1 - Exam Physical examination: PHYSICAL EXAMINATION: Patient is resting comfortably and is intubated on the ventilator and is on a Diprivan drip. VITAL SIGNS: Blood pressure is [103/56]. Heart rate is [52]. Respiration is [18] . Temperature is [99.2]. HEENT: Head is atraumatic, neck is supple, there were no carotid bruits. CHEST: Lungs are clear to auscultation and percussion. CARDIAC: S1, S2 normal rate and rhythm. There is no murmur. ABDOMEN: Soft and nontender. Bowel sounds are present. EXTREMITIES: There is no pedal edema. Peripheral pulses are present. Neurological examination: Patient is examined today in the intensive care unit. He is currently intubated on the ventilator and is on a Diprivan drip at a rate of 30 mics. Patient is having some spontaneous movements and does seem to withdraw to painful stimuli. Pupils are sluggish bilaterally. Corneal response on gaze. He does withdraw to painful stimuli overall 4 extremities. Deep tendon reflexes are hypoactive 1+. There is no Babinski response elicited. - Labs CBC & Chem 7: 07/03/18 04:33 07/03/18 04:33 Labs: Abnormal Lab Results - Last 24 Hours (Table) 07/02/18 07/02/18 07/02/18 Range/Units 08:10 08:10 22:29 WBC (3.8-10.6) k/uL RBC (4.30-5.90) m/uL Hgb (13.0-17.5) gm/dL Hct (39.0-53.0) % Neutrophils # (1.3-7.7) k/uL ABG pH (7.35-7.45) ABG pO2 (83-108) mmHg ABG HCO3 (21-25) mmol/L ABG Total CO2 (19-24) mmol/L ABG O2 Saturation (94-97) % Potassium (3.5-5.1) mmol/L Glucose 154 H (74-99) mg/dL POC Glucose (mg/dL) 116 H (75-99) mg/dL Plasma Lactic Acid Fuad (0.7-2.0) mmol/L Magnesium (1.6-2.3) mg/dL AST (17-59) U/L ALT (21-72) U/L Alkaline Phosphatase 152 H (38-126) U/L Urine Protein 3+ H (Negative) Ur Leukocyte Esterase (Negative) Urine RBC (0-5) /hpf Amorphous Sediment (None) /hpf Urine Bacteria Many H (None) /hpf Urine Mucus (None) /hpf Urine Sperm Many H (None) /hpf U Benzodiazepines Scrn Detected H (NotDetected) 07/02/18 07/02/18 07/02/18 Range/Units 23:04 23:04 23:10 WBC (3.8-10.6) k/uL RBC (4.30-5.90) m/uL Hgb (13.0-17.5) gm/dL Hct 38.0 L (39.0-53.0) % Neutrophils # (1.3-7.7) k/uL ABG pH (7.35-7.45) ABG pO2 (83-108) mmHg ABG HCO3 (21-25) mmol/L ABG Total CO2 (19-24) mmol/L ABG O2 Saturation (94-97) % Potassium 3.1 L (3.5-5.1) mmol/L Glucose 191 H (74-99) mg/dL POC Glucose (mg/dL) 225 H (75-99) mg/dL Plasma Lactic Acid Fuad (0.7-2.0) mmol/L Magnesium 2.8 H (1.6-2.3) mg/dL AST 155 H (17-59) U/L ALT 116 H (21-72) U/L Alkaline Phosphatase 143 H (38-126) U/L Urine Protein (Negative) Ur Leukocyte Esterase (Negative) Urine RBC (0-5) /hpf Amorphous Sediment (None) /hpf Urine Bacteria (None) /hpf Urine Mucus (None) /hpf Urine Sperm (None) /hpf U Benzodiazepines Scrn (NotDetected) 07/02/18 07/03/18 07/03/18 Range/Units 23:31 02:40 04:33 WBC 12.4 H (3.8-10.6) k/uL RBC 4.25 L (4.30-5.90) m/uL Hgb 12.5 L (13.0-17.5) gm/dL Hct 37.6 L (39.0-53.0) % Neutrophils # 10.5 H (1.3-7.7) k/uL ABG pH (7.35-7.45) ABG pO2 (83-108) mmHg ABG HCO3 27 H (21-25) mmol/L ABG Total CO2 28 H (19-24) mmol/L ABG O2 Saturation 97.1 H (94-97) % Potassium (3.5-5.1) mmol/L Glucose (74-99) mg/dL POC Glucose (mg/dL) (75-99) mg/dL Plasma Lactic Acid Fuad (0.7-2.0) mmol/L Magnesium (1.6-2.3) mg/dL AST (17-59) U/L ALT (21-72) U/L Alkaline Phosphatase (38-126) U/L Urine Protein 1+ H (Negative) Ur Leukocyte Esterase Moderate H (Negative) Urine RBC 11 H (0-5) /hpf Amorphous Sediment Occasional H (None) /hpf Urine Bacteria Few H (None) /hpf Urine Mucus Few H (None) /hpf Urine Sperm (None) /hpf U Benzodiazepines Scrn (NotDetected) 07/03/18 07/03/18 07/03/18 Range/Units 04:33 04:33 05:41 WBC (3.8-10.6) k/uL RBC (4.30-5.90) m/uL Hgb (13.0-17.5) gm/dL Hct (39.0-53.0) % Neutrophils # (1.3-7.7) k/uL ABG pH 7.49 H (7.35-7.45) ABG pO2 320 H (83-108) mmHg ABG HCO3 31 H (21-25) mmol/L ABG Total CO2 32 H (19-24) mmol/L ABG O2 Saturation 99.0 H (94-97) % Potassium (3.5-5.1) mmol/L Glucose 108 H (74-99) mg/dL POC Glucose (mg/dL) (75-99) mg/dL Plasma Lactic Acid Fuad 2.8 H* (0.7-2.0) mmol/L Magnesium 2.4 H (1.6-2.3) mg/dL AST (17-59) U/L ALT (21-72) U/L Alkaline Phosphatase (38-126) U/L Urine Protein (Negative) Ur Leukocyte Esterase (Negative) Urine RBC (0-5) /hpf Amorphous Sediment (None) /hpf Urine Bacteria (None) /hpf Urine Mucus (None) /hpf Urine Sperm (None) /hpf U Benzodiazepines Scrn (NotDetected) 07/03/18 Range/Units 06:04 WBC (3.8-10.6) k/uL RBC (4.30-5.90) m/uL Hgb (13.0-17.5) gm/dL Hct (39.0-53.0) % Neutrophils # (1.3-7.7) k/uL ABG pH (7.35-7.45) ABG pO2 (83-108) mmHg ABG HCO3 (21-25) mmol/L ABG Total CO2 (19-24) mmol/L ABG O2 Saturation (94-97) % Potassium (3.5-5.1) mmol/L Glucose (74-99) mg/dL POC Glucose (mg/dL) 100 H (75-99) mg/dL Plasma Lactic Acid Fuad (0.7-2.0) mmol/L Magnesium (1.6-2.3) mg/dL AST (17-59) U/L ALT (21-72) U/L Alkaline Phosphatase (38-126) U/L Urine Protein (Negative) Ur Leukocyte Esterase (Negative) Urine RBC (0-5) /hpf Amorphous Sediment (None) /hpf Urine Bacteria (None) /hpf Urine Mucus (None) /hpf Urine Sperm (None) /hpf U Benzodiazepines Scrn (NotDetected) Assessment and Plan (1) New onset seizure Current Visit: Yes Status: Acute Code(s): R56.9 - UNSPECIFIED CONVULSIONS SNOMED Code(s): 55427442 (2) Drug use Current Visit: Yes Status: Acute Code(s): F19.90 - OTHER PSYCHOACTIVE SUBSTANCE USE, UNSPECIFIED, UNCOMPLICATED SNOMED Code(s): 305908421 Plan: This patient is a 37-year-old right-handed white male who was seen yesterday afternoon on the medical surgical floor at [facility] for evaluation of possible new onset seizure. Patient was at home yesterday morning and apparently had an event in which she was gurgling and was unresponsive and was found by his fiance with eyes rolled up into his head and stiff. She immediately called EMS and the patient was transferred by EMS to the emergency room at [facility] yesterday. Patient was seen in the ER by Dr. Smart. On further questioning it was obtained from the ER nurse that the patient had been consuming Lomotil 100 tablets a day apparently to obtain a high. He had been taking this high dose of Lomotil on a regular basis for about a month. He had not taken any Lomotil on Tuesday just prior to going to the football game. The patient was evaluated in the ER and underwent a computed tomography scan of the brain which failed to reveal any acute changes. He was admitted to selective care floor on the fourth floor and was seen in neurology consultation yesterday. We have reviewed all of our recommendations with him in detail at that time and he was aware that we wanted to obtain a routine EEG and MRI of the brain today for further evaluation. He was advised of the [employer] driving law in regards to seizures and was aware that he could not drive for appeared to 6 months following this recent event. The patient was quite stable yesterday afternoon however at about 10:30 PM he was going to the bathroom and apparently collapsed onto the floor and a code was called. The fourth floor nursing staff started CPR and when the code team arrived they found him to be in ventricular fibrillation. He was shocked once and then apparently went into seizure-like activity. He was given 2 doses of Ativan and was intubated and transferred to the intensive care unit where he is currently residing. The patient is currently on Diprivan drip and remains obtunded. He was sent for a computed tomography scan of the brain early this morning which was reviewed and is negative for any acute changes. He is currently undergoing a routine EEG which she will also be reviewed. The patient had been taking Lomotil 100 tablets daily for the past 1 month which likely is contributed to his current status. He likely has some form of underlying cardiomyopathy which should be further evaluated by cardiology. The patient remains unresponsive on a Diprivan drip at 30 mics. We will continue close monitoring of his condition and we will reevaluate him after he has completed his routine EEG and is seen by cardiology and pulmonary critical care medicine. This patient's overall prognosis at this time remains very guarded. According to the ICU nursing staff voicing control is aware of his current findings of overdose with Lomotil. We will need to follow along with poison control in terms of any further recommendations. His overall prognosis at this time remains very guarded. This patient's overall prognosis at this time remains very guarded. We've instructed the ICU nursing staff to inform the fikelly and other family members of his overall neurological status and condition which we will be happy to discuss with them later today. His overall prognosis at this time remains guarded.
[2018-07-03] MEDS: CHLORHEXIDINE GLUCONATE 15 ML CUP MUCOUS MEM SCH ×2 (09:21→21:16)
[2018-07-03 09:38] LABS: ALT 107 U/L (21-72); AST 130 U/L (17-59); Albumin 3.8 g/dL (3.5-5.0); Alkaline Phosphatase 106 U/L (38-126); Total Bilirubin 0.3 mg/dL (0.2-1.3); Total Protein 6.7 g/dL (6.3-8.2)
[2018-07-03] MEDS: levETIRAcetam IV 750 MG in SODIUM CHLORIDE 0.9% 100 ML IVPB SCH ×2 (11:28→23:12)
[2018-07-03 12:01] VITALS: BMI 28.0
--- NOTE | 2018-07-03 12:15 | ECHOF ---
Referral Reason:cardiology consult MEASUREMENTS -------- HEIGHT: 182.9 cm WEIGHT: 93.9 kg BP: 87/44 RVIDd: 2.8 cm (< 3.3) IVSd: 1.1 cm (0.6 - 1.1) LVIDd: 4.6 cm (3.9 - 5.3) LVPWd: 1.0 cm (0.6 - 1.1) IVSs: 1.5 cm LVIDs: 2.8 cm LVPWs: 1.6 cm LA Diam: 3.3 cm (2.7 - 3.8) LAESV Index (A-L): 19.55 ml/m Ao Diam: 3.8 cm (2.0 - 3.7) AV Cusp: 2.5 cm (1.5 - 2.6) MV EXCURSION: 27.028 mm (> 18.000) MV EF SLOPE: 67 mm/s (70 - 150) EPSS: 0.2 cm MV E Jed: 0.75 m/s MV DecT: 408 ms MV A Jed: 0.60 m/s MV E/A Ratio: 1.25 RAP: 5.00 mmHg RVSP: 24.48 mmHg FINDINGS -------- Resting bradycardia (HR<60bpm). This was a technically good study. The left ventricular size is normal. There is borderline concentric left ventricular hypertrophy. Overall left ventricular systolic function is normal with, an EF between 55 - 60 %. The right ventricle is normal in size. Normal LA size by volume 22+/-6 ml/m2. The right atrium is normal in size. The aortic valve is trileaflet and appears structurally normal. The mitral valve is normal. Mild tricuspid regurgitation present. Right ventricular systolic pressure is normal at < 35 mmHg. Moderate pulmonic regurgitation. The aortic root is dilated measuring 3.8cm. Normal inferior vena cava with normal inspiratory collapse consistent with estimated right atrial pre ssure of 5 mmHg. There is no pericardial effusion. CONCLUSIONS -------- 1. Resting bradycardia (HR<60bpm). 2. This was a technically good study. 3. The left ventricular size is normal. 4. There is borderline concentric left ventricular hypertrophy. 5. Overall left ventricular systolic function is normal with, an EF between 55 - 60 %. 6. The right ventricle is normal in size. 7. Normal LA size by volume 22+/-6 ml/m2. 8. The right atrium is normal in size. 9. The aortic valve is trileaflet and appears structurally normal. 10. The mitral valve is normal. 11. Mild tricuspid regurgitation present. 12. Right ventricular systolic pressure is normal at < 35 mmHg. 13. Moderate pulmonic regurgitation. 14. The aortic root is dilated measuring 3.8cm. 15. Normal inferior vena cava with normal inspiratory collapse consistent with estimated right atrial pressure of 5 mmHg. 16. There is no pericardial effusion. WEB CONTENT DIRECTOR: Ely Lion RDCS
[2018-07-03] MEDS: DEXTROSE 5% IN WATER 1,000 ML with SODIUM BICARB (1 MEQ/ML) 150 ML IV SCH (12:19)
--- NOTE | 2018-07-03 12:56 | P.CNPUL ---
History of Present Illness Consult date: 07/03/18 Requesting physician: Geraldo Benitez Reason for consult: other (Acute respiratory failure, on mechanical ventilation) Chief complaint: Mental status change and possible seizure History of present illness: This is a 37-year-old white male with history of anxiety, found by his fiance to be gurgling, and unresponsive with possible seizure activity lasting about 2 minutes. EMS arrived, patient was noted to be confused, there was no evidence of urinary incontinence, no tongue biting, no previous history of seizure disorder, however he does have strong family history of seizure disorder. Yesterday, patient went to the [employer] [facility] football game, and he was noted to have extreme and profound shortness of breath while going up to the stadium. He felt he was out of shape for some reason. According to the fiance , she found him gurgling and apparently stiff with eyes rolled back in his head. 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 No history of any drug abuse, but apparently when he was admitted to the medical floor, patient admitted to the nurses that he was taking significant amount of Imodium to get a bit high. His drug screen was positive for benzodiazepines neurological workup on admission has been negative so far. Including CT of the brain and EEG. Patient remains in the meantime on seizure precautions. And he is being followed by neurology on consultation. Shortly after he was admitted to the medical floor, patient apparently had an episode of profound bradycardia rate apparently dropped down to the 40s, A code was called, patient was noted to be in ventricular fibrillation, shocked once, resuscitated, intubated, CPR was given for a short period of time, patient was transferred to the ICU, and this consult was initiated to Dr. Huber who managed his ventilator overnight. Today the patient remains on mechanical ventilation, and his ventilator settings are tidal volume of 550 assist-control rate of 18, FiO2 of 35%, and PEEP of 5. ABG this morning showed a pO2 of 320 pCO2 of 41 pH of 7.49. Rest of the labs were noted to be relatively unremarkable. Patient is on propofol and Versed drip, hence I recommended discontinuation of the Versed drip, and will continue on propofol. Patient also required to be on bicarb drip which I have discontinued this morning after reviewing his ABG. Poison control was notified apparently earlier by the ER physician, and some recommendations were made regarding Imodium overdose. Patient is yet to be seen by cardiology on consultation. Echocardiogram is pending. Review of Systems ROS unobtainable: due to endotracheal tube Past Medical History Past Medical History: No Reported History Additional Past Medical History / Comment(s): possible panic attack, possible seizure while in hospital in [place]. History of Any Multi-Drug Resistant Organisms: None Reported Past Surgical History: Adenoidectomy, Orthopedic Surgery, Tonsillectomy Additional Past Surgical History / Comment(s): knee Past Anesthesia/Blood Transfusion Reactions: No Reported Reaction Past Psychological History: Anxiety Smoking Status: Current every day smoker Past Alcohol Use History: Occasional Past Drug Use History: None Reported - Past Family History Mother Family Medical History: Seizure Disorder Father Additional Family Medical History / Comment(s): back problems, possible heart condition. Medications and Allergies Home Medications Medication Instructions Recorded Confirmed Type ALPRAZolam 0.5 - 1 mg PO DAILY PRN 03/23/17 07/02/18 History Acetaminophen [Tylenol] 650 mg PO Q4H PRN 07/02/18 07/02/18 History Ascorbic Acid [Vitamin C] 500 mg PO DAILY 07/02/18 07/02/18 History Loperamide [Imodium] 2 mg PO QID PRN 07/02/18 07/02/18 History Venlafaxine HCl ER [Effexor Xr] 150 mg PO DAILY 07/02/18 07/02/18 History Allergies Allergy/AdvReac Type Severity Reaction Status Date / Time No Known Allergies Allergy Verified 07/02/18 10:45 Physical Exam Vitals: Vital Signs Temp Pulse Pulse Resp BP BP Pulse Ox 07/03/18 12:00 52 L 17 99/55 100 07/03/18 11:30 49 L 18 95/52 100 07/03/18 11:00 50 L 17 95/51 100 07/03/18 10:30 50 L 18 101/54 100 07/03/18 10:00 52 L 18 99/53 100 07/03/18 09:30 53 L 18 99/53 100 07/03/18 09:00 54 L 18 104/56 100 07/03/18 08:30 53 L 17 99/55 100 07/03/18 08:19 99.2 F 55 L 18 102/57 07/03/18 08:00 99.2 F 52 L 18 103/56 100 07/03/18 07:30 53 L 18 103/56 100 07/03/18 07:00 56 L 18 87/44 100 07/03/18 06:30 56 L 18 96/49 100 07/03/18 06:00 56 L 18 97/52 100 07/03/18 05:30 54 L 18 99/54 100 07/03/18 05:00 56 L 19 96/51 100 07/03/18 04:30 54 L 19 94/51 100 07/03/18 04:00 98.9 F 53 L 18 94/51 100 07/03/18 03:30 54 L 91/50 100 07/03/18 03:00 56 L 18 89/47 100 07/03/18 02:45 58 L 18 89/45 100 07/03/18 02:30 60 18 91/47 100 07/03/18 02:15 65 18 97/54 100 07/03/18 02:00 69 18 91/48 100 07/03/18 01:52 71 07/03/18 01:30 73 18 103/58 07/03/18 01:15 79 18 121/65 99 07/03/18 01:00 85 18 147/79 95 07/03/18 00:45 97 22 162/94 93 L 07/03/18 00:30 82 21 136/78 07/03/18 00:15 90 18 112/63 93 L 07/03/18 00:00 99 F 98 25 H 155/75 88 L 07/02/18 23:45 93 31 H 137/81 90 L 07/02/18 23:30 101 H 35 H 217/131 93 L 07/02/18 23:15 109 H 30 H 192/107 97 07/02/18 23:06 98.5 F 98 07/02/18 22:20 44 L 18 98 07/02/18 20:20 16 07/02/18 13:30 97.7 F 55 L 16 111/62 100 Intake and Output 07/02/18 07/03/18 07/03/18 22:59 06:59 14:59 Intake Total 1931.417 810.163 Output Total 895 500 Balance 1036.417 310.163 Intake: IV 1740 710 Clevidipine Butyrate 25 5 mg In Empty Bag 1 bag @ 1 MG/HR 2 mls/hr IV .Q24H ATUL Rx#:[id number] Dextrose 5% in Water 1, 800 200 000 ml @ 100 mls/hr IV . [id number] ATUL with Sodium Bicarb (1 Meq/ml) 150 ml Rx#:[id number] Midazolam HCl 100 mg In 35 10 Sodium Chloride 0.9% 80 ml @ 5 MG/HR 5 mls/hr IV .Q20H ATUL Rx#:[id number] Sodium Chloride 0.9% 1, 800 500 000 ml @ 100 mls/hr IV . Q10H ATUL Rx#:[id number] levETIRAcetam IV 1,000 mg 100 In Saline 1 100ml.bag @ 400 mls/hr IVPB ONCE STA Rx#:[id number] Intake, IV Titration 191.417 100.163 Amount Clevidipine Butyrate 25 9.400 mg In Empty Bag 1 bag @ 1 MG/HR 2 mls/hr IV .Q24H ATUL Rx#:[id number] Midazolam HCl 100 mg In 41.333 Sodium Chloride 0.9% 80 ml @ 5 MG/HR 5 mls/hr IV .Q20H ATUL Rx#:[id number] Propofol 1,000 mg In 182.017 58.830 Empty Bag 1 bag @ Titrate IV .Q0M ATUL Rx#: [id number] Output: Gastric Drainage 250 60 Urine 645 440 Other: Voiding Method Indwelling Catheter Indwelling Catheter # Voids 1 1 Weight 93.9 kg 93.9 kg Physical Exam: Revealed a 37-year-old white male, intubated, on mechanical ventilation, in no distress. Head: Atraumatic, normocephalic. Lymphatics: No lymphadenopathy. HEENT:[Neck is supple.] [No neck masses.] [No thyromegaly.] [No JVD.] PERRLA, EOMI, no icterus. Moist mucous membranes noted. Chest: [Clear throughout, no crackles, no rhonchi, no wheezes.] Cardiac Exam: [Normal S1 and S2, no S3 gallop, no murmur.] Abdomen: [Soft, nontender, no megaly, no rebound, no guarding, normal bowel sounds.] Extremities: [No clubbing, no edema, no cyanosis.] Neurological Exam: [Not be assessed, patient is on propofol and Versed drip. Psychiatric: Cannot be assessed. Skin: No rashes. Results - Laboratory Findings CBC and BMP: 07/03/18 04:33 07/03/18 04:33 ABG ABG pH 7.49 (7.35-7.45) H 07/03/18 05:41 ABG pCO2 41 mmHg (35-45) 07/03/18 05:41 ABG pO2 320 mmHg (83-108) H 07/03/18 05:41 ABG O2 Saturation 99.0 % (94-97) H 07/03/18 05:41 PT/INR, D-dimer PT 9.7 sec (9.0-12.0) 07/02/18 23:04 INR 1.0 (<1.2) 07/02/18 23:04 Abnormal lab findings: Abnormal Labs 07/02/18 07/02/18 07/02/18 08:10 08:10 22:29 WBC RBC Hgb Hct Neutrophils # ABG pH ABG pO2 ABG HCO3 ABG Total CO2 ABG O2 Saturation Potassium Glucose 154 H POC Glucose (mg/dL) 116 H Plasma Lactic Acid Fuad Magnesium AST ALT Alkaline Phosphatase 152 H Urine Protein 3+ H Ur Leukocyte Esterase Urine RBC Amorphous Sediment Urine Bacteria Many H Urine Mucus Urine Sperm Many H U Benzodiazepines Scrn Detected H 07/02/18 07/02/18 07/02/18 23:04 23:04 23:10 WBC RBC Hgb Hct 38.0 L Neutrophils # ABG pH ABG pO2 ABG HCO3 ABG Total CO2 ABG O2 Saturation Potassium 3.1 L Glucose 191 H POC Glucose (mg/dL) 225 H Plasma Lactic Acid Fuad Magnesium 2.8 H AST 155 H ALT 116 H Alkaline Phosphatase 143 H Urine Protein Ur Leukocyte Esterase Urine RBC Amorphous Sediment Urine Bacteria Urine Mucus Urine Sperm U Benzodiazepines Scrn 07/02/18 07/03/18 07/03/18 23:31 02:40 04:33 WBC 12.4 H RBC 4.25 L Hgb 12.5 L Hct 37.6 L Neutrophils # 10.5 H ABG pH ABG pO2 ABG HCO3 27 H ABG Total CO2 28 H ABG O2 Saturation 97.1 H Potassium Glucose POC Glucose (mg/dL) Plasma Lactic Acid Fuad Magnesium AST ALT Alkaline Phosphatase Urine Protein 1+ H Ur Leukocyte Esterase Moderate H Urine RBC 11 H Amorphous Sediment Occasional H Urine Bacteria Few H Urine Mucus Few H Urine Sperm U Benzodiazepines Scrn 07/03/18 07/03/18 07/03/18 04:33 04:33 05:41 WBC RBC Hgb Hct Neutrophils # ABG pH 7.49 H ABG pO2 320 H ABG HCO3 31 H ABG Total CO2 32 H ABG O2 Saturation 99.0 H Potassium Glucose 108 H POC Glucose (mg/dL) Plasma Lactic Acid Fuad 2.8 H* Magnesium 2.4 H AST 130 H ALT 107 H Alkaline Phosphatase Urine Protein Ur Leukocyte Esterase Urine RBC Amorphous Sediment Urine Bacteria Urine Mucus Urine Sperm U Benzodiazepines Scrn 07/03/18 07/03/18 06:04 09:23 WBC RBC Hgb Hct Neutrophils # ABG pH ABG pO2 ABG HCO3 ABG Total CO2 ABG O2 Saturation Potassium Glucose POC Glucose (mg/dL) 100 H Plasma Lactic Acid Fuad 2.9 H* Magnesium AST ALT Alkaline Phosphatase Urine Protein Ur Leukocyte Esterase Urine RBC Amorphous Sediment Urine Bacteria Urine Mucus Urine Sperm U Benzodiazepines Scrn - Diagnostic Findings Chest x-ray: image reviewed (Small left pleural effusion is suspected, atelectasis at the left base is also noted.) Assessment and Plan Assessment: Impression: 1 acute hypoxic respiratory failure, most likely secondary to new onset seizure or could be related to Imodium toxicity/overdose. 2 drug overdose, Imodium overdose. And toxicity. 3 acute cardiac arrest, most likely secondary to arrhythmia, secondary to Imodium toxicity. 4 possible anoxic encephalopathy, that is yet to be determined. Recommendation: Continue ventilatory support, hemodynamic support, nutritional support, patient is to be seen by cardiology on consultation for his cardiac arrest, continue to follow the recommendations of poison control, treatment of possible new onset seizure by neurology as recommended. Continue GI and DVT prophylaxis. We'll continue to follow on monitor in the ICU closely. Critical care time is 45 minutes. Time with Patient: Greater than 30
--- NOTE | 2018-07-03 14:44 | CONS ---
CONSULTATION CHIEF COMPLAINT: Ventricular fibrillation. Issa is a 37-year-old gentleman who is admitted to the hospital currently with an overdose of apparently having had a seizure at home and taking almost 100 tablets a day of Imodium. The patient was on the floor. The patient initially had a seizure at home was 911 was called. He was brought into the hospital. He improved in the ER. Neurology was consulted. The patient was on the floor and had an episode of seizures. During this time, if cold was run and he received a shock, I am told that he was in ventricular fibrillation and was shocked out of it. There were no rhythm strips from this time and it is unclear as to what exactly happened, whether he had a seizure or had something else. Admission EKG showed normal QT, QRS intervals, subsequent EKG shows a prolonged QT interval. Patient is intubated on vent and unresponsive. PAST MEDICAL HISTORY: Negative for hypertension, diabetes, dyslipidemia. MEDICATIONS: Include Effexor, Imodium, vitamin C, Tylenol, and Xanax. ALLERGIES: There are no known drug allergies. FAMILY HISTORY, SOCIAL HISTORY, REVIEW OF SYSTEMS: I am unable to obtain from the patient. PHYSICAL EXAM: He is in sinus rhythm. Heart rate is 50 beats per minute, blood pressure is 99/55, respiratory rate is 18. Chest exam reveals diminished air entry at the bases, heart exam reveals first and second heart sounds. No gallop. No murmur. Exam extremities did not reveal any edema. Peripheral pulses are felt. The patient had an echocardiogram that showed normal LV systolic function. LABS: Show that his hemoglobin is 12.5. AST, ALT are elevated. Creatinine is normal if magnesium was normal at 2.4 as well as the potassium. ASSESSMENT: 1. Status post cardiac arrest. 2. Over-consumption of Imodium. 3. Seizure disorder. 4. QT prolongation. PLAN: From cardiac standpoint, patient is in stable sinus rhythm, has QT prolongation. We are trying to talk to Pharmacy about all the medications he is on and if any of them with prolonged QT interval, certainly avoid all QT prolonging drugs. It is unclear if the patient had VFib or not and that his LV function is normal. There are no wall motion abnormalities, so I am not sure if he truly had VFib or it was seizure and they had artifact on the monitor. We will continue with supportive care and follow him during his hospitalization. MMODL / IJN: [id number] /
[2018-07-03 15:17] LABS: Anion Gap 4 mmol/L; Blood Urea Nitrogen 11 mg/dL (9-20); Calcium 8.2 mg/dL (8.4-10.2); Carbon Dioxide 29 mmol/L (22-30); Chloride 106 mmol/L (98-107); Glucose 107 mg/dL (74-99); Magnesium 2.1 mg/dL (1.6-2.3); Potassium 3.7 mmol/L (3.5-5.1); Sodium 139 mmol/L (137-145)
[2018-07-03] MEDS ORDERED: POTASSIUM BICARBONATE/CIT AC 20 MEQ TABLET.EFF PO ONE (16:16)
[2018-07-03] MEDS ORDERED: MAGNESIUM SULFATE-D5W PMX 1 GM in DEXTROSE/WATER 1 100ML.BAG IVPB ONE (19:08)
[2018-07-03 19:16] LABS: Anion Gap 7 mmol/L; Blood Urea Nitrogen 10 mg/dL (9-20); Calcium 7.8 mg/dL (8.4-10.2); Carbon Dioxide 26 mmol/L (22-30); Chloride 106 mmol/L (98-107); Glucose 101 mg/dL (74-99); Magnesium 2.1 mg/dL (1.6-2.3); Potassium 3.7 mmol/L (3.5-5.1); Sodium 139 mmol/L (137-145)
[2018-07-03 20:44] LABS: Glucose,Whole Blood 96 mg/dL (75-99)
[2018-07-03] MEDS ORDERED: Potassium Replacement Protocol 1 EACH MISC MISCELLANE PRN (21:09)
[2018-07-03] MEDS ORDERED: POTASSIUM BICARBONATE/CIT AC 20 MEQ TABLET.EFF NG-TUBE SCH (22:00)
[2018-07-04] MEDS: HEPARIN SODIUM,PORCINE 5,000 UNIT/ML 1 ML VIAL SQ SCH ×3 (00:16→18:24)
[2018-07-04] MEDS ORDERED: MIDAZOLAM 1 MG/ML 5 ML VIAL IV STA (04:32)
[2018-07-04] MEDS: SODIUM CHLORIDE 0.9% 1,000 ML IV SCH ×4 (04:52→18:06)
[2018-07-04] MEDS: PROPOFOL 1,000 MG in EMPTY BAG 1 BAG IV SCH ×3 (04:56→16:52)
[2018-07-04 05:50] LABS: ALT 90 U/L (21-72); AST 65 U/L (17-59); Albumin 3.3 g/dL (3.5-5.0); Alkaline Phosphatase 109 U/L (38-126); Anion Gap 5 mmol/L; Blood Urea Nitrogen 9 mg/dL (9-20); Calcium 8.6 mg/dL (8.4-10.2); Carbon Dioxide 28 mmol/L (22-30); Chloride 107 mmol/L (98-107); Glucose 99 mg/dL (74-99); Magnesium 2.4 mg/dL (1.6-2.3); Phosphorus 2.6 mg/dL (2.5-4.5); Potassium 3.9 mmol/L (3.5-5.1); Sodium 140 mmol/L (137-145); Total Bilirubin 0.5 mg/dL (0.2-1.3); Total Protein 6.2 g/dL (6.3-8.2)
--- NOTE | 2018-07-04 05:59 | PN ---
PROGRESS NOTE DATE OF SERVICE: 07/03/2018 PRESENTING COMPLAINT: Cardiac arrest. INTERVAL HISTORY: This patient who presented with seizure episode after overdosing with Imodium A-D abusing it for last one month last night patient went into V-fib and had to be intubated, admitted to the ICU. The patient again did have an episode of V-fib appears to be torsades. Patient also had prolonged QRS. The patient is currently on the ventilator FiO2 of 50 and a PEEP of 40%. Telemetry shows sinus rhythm. REVIEW OF SYSTEMS: Patient is currently intubated. CURRENT MEDICATIONS: Current medications are reviewed. They include IV Peridex, IV clevidipine, subcu heparin, IV Keppra, IV propofol, saline. PHYSICAL EXAMINATION: On examination, afebrile, pulse 53, respiration 18, blood pressure 118/67, pulse ox 97%. GENERAL APPEARANCE: Lying in bed, intubated. EYES: Pupils equal. Conjunctivae normal. HENT: External appearance of nose and ears normal. Oral cavity endotracheal tube. NECK: JVD unable to assess. Mass not palpable. RESPIRATORY: Effort . Lungs are clear. CARDIOVASCULAR: First and second sounds normal. No edema. ABDOMEN: Soft, nontender. Liver and spleen not palpable. PSYCHIATRY: Unable to assess. NEUROLOGICAL: Pupils are equal, reactive. Gag reflex is present. INVESTIGATIONS: Potassium 3.7, BUN 10, creatinine 0.63, calcium 7.8. The 2-D echo shows preserved LV function, pulmonic regurgitation moderate. Chest x-ray nonspecific. ASSESSMENT: 1. Recurrent episodes of what appears to be torsades. 2. Prolonged QT interval. 3. 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 4. Recurrent seizures. 5. Chronic anxiety disorder. 6. Acute hypoxic respiratory failure on ventilator support. PLAN: Continue current medication and treatment plan. Prognosis is guarded. The patient has been seen by Critical Care, Dr. Irving; Dr. Jessee Hollins from Cardiology and Dr. Brandy Donnelly from Neurology. Follow closely. MMODL / IJN: [id number] /
[2018-07-04] MEDS ORDERED: Potassium Replacement Protocol 1 EACH MISC MISCELLANE PRN (06:00)
[2018-07-04] MEDS ORDERED: POTASSIUM BICARBONATE/CIT AC 20 MEQ TABLET.EFF NG-TUBE SCH (06:00)
[2018-07-04 06:20] LABS: Basophils % (A) 0 %; Eosinophils # (A) 0.1 k/uL (0-0.7); Eosinophils % (A) 1 %; HCT 33.8 % (39.0-53.0); HGB 11.2 gm/dL (13.0-17.5); Lymphocytes # (A) 1.2 k/uL (1.0-4.8); Lymphocytes % (A) 12 %; MCH 28.8 pg (25.0-35.0); MCV 87.3 fL (80.0-100.0); Monocytes # (A) 0.5 k/uL (0-1.0); Monocytes % (A) 5 %; Neutrophils # (A) 8.3 k/uL (1.3-7.7); Neutrophils % (A) 82 %; Platelet Count 196 k/uL (150-450); RBC 3.87 m/uL (4.30-5.90); RDW 13.1 % (11.5-15.5); WBC 10.1 k/uL (3.8-10.6)
[2018-07-04] MEDS: MIDAZOLAM HCL 100 MG in SODIUM CHLORIDE 0.9% 80 ML IV SCH ×2 (06:48→14:33)
--- NOTE | 2018-07-04 06:57 | XR ---
EXAMINATION TYPE: XR chest 1V DATE OF EXAM: 07/04/2018 CLINICAL HISTORY: Difficulty breathing progress study. TECHNIQUE: Single AP portable semiupright view of the chest is obtained. COMPARISON: Chest x-ray from one day earlier and older studies. FINDINGS: An endotracheal and nasogastric tube are stable in appearance. There is stable mild cardio megaly with left basilar opacity felt to reflect atelectasis and/or infiltrate in possible small left pleural effusion. Right lung remains clear. Osseous structures are intact. IMPRESSION: Overall stable findings, mild cardiomegaly with left basilar infiltrate and/or atelecta sis and probable small left pleural effusion all redemonstrated.
[2018-07-04 07:57] LABS: ABG Base Excess 4.5 mmol/L; ABG HCO3 28 mmol/L (21-25); ABG Oxygen Saturation 98.4 % (94-97); ABG PCO2 34 mmHg (35-45); ABG PH 7.52 (7.35-7.45); ABG PO2 92 mmHg (83-108); ABG TCO2 29 mmol/L (19-24)
[2018-07-04] MEDS: PANTOPRAZOLE 40 MG/10 ML VIAL IVP SCH (08:50)
[2018-07-04] MEDS: CHLORHEXIDINE GLUCONATE 15 ML CUP MUCOUS MEM SCH (08:51)
[2018-07-04] MEDS ORDERED: MAGNESIUM SULFATE-D5W PMX 1 GM in DEXTROSE/WATER 1 100ML.BAG IVPB ONE ×2 (11:32→12:00)
[2018-07-04] MEDS ORDERED: fentaNYL (PF) 2,500 MCG in SODIUM CHLORIDE 0.9% 200 ML IV SCH (11:45)
[2018-07-04] MEDS ORDERED: DOPamine DRIP 800 MG in DEXTROSE/WATER 1 500ML.BAG IV SCH (11:45)
[2018-07-04] MEDS: CISATRACURIUM 200 MG in SODIUM CHLORIDE 0.9% 180 ML IV SCH ×2 (12:05→20:00)
[2018-07-04] MEDS ORDERED: CISATRACURIUM 2 MG/ML 5 ML VIAL IV ONE (12:07)
[2018-07-04] MEDS ORDERED: hydrALAZINE HCL 20 MG/ML 1 ML VIAL ONE (12:08)
[2018-07-04] MEDS: CISATRACURIUM 2 MG/ML 5 ML VIAL IV ONE ×2 (12:10→18:44)
[2018-07-04] MEDS: CLEVIDIPINE BUTYRATE 25 MG in EMPTY BAG 1 BAG IV SCH ×5 (12:19→20:10)
[2018-07-04 12:21] LABS: ABG Base Excess 2.3 mmol/L; ABG HCO3 27 mmol/L (21-25); ABG Oxygen Saturation 98.4 % (94-97); ABG PCO2 41 mmHg (35-45); ABG PH 7.42 (7.35-7.45); ABG PO2 225 mmHg (83-108); ABG TCO2 28 mmol/L (19-24)
[2018-07-04] MEDS: levETIRAcetam IV 750 MG in SODIUM CHLORIDE 0.9% 100 ML IVPB SCH (13:44)
--- NOTE | 2018-07-04 14:27 | PN ---
PROGRESS NOTE Issa is a 37-year-old gentleman who is admitted to hospital with intentional overdose of Imodium. Patient had a cardiac arrest on the floor and has to be shocked for what we were told was ventricular fibrillation, but we did not find any rhythm strips from that time. Patient was intubated. Currently on vent and in the ICU. Yesterday, he has had runs of polymorphic VT, discontinued today and had to be shocked. Patient received magnesium and I repeated the doses. Patient is also bradycardic. We were thinking of starting him on dopamine, but the heart rate has improved and ever since the heart rate had gone up, he is not having episodes of torsades. His EKG showed that the QT interval was prolonged, but this has improved in the subsequent EKGs. Patient is on Versed, on Nimbex and on propofol. Ever since I decreased the propofol dose, his heart rate had improved. I reviewed his rhythm strips, labs and I spoke to his mother who is here. LABS: Show a hemoglobin of 11.2, potassium is 3.9, creatinine is 0.6. Magnesium was 2.4 and we gave him 2 g of IV magnesium given the recurrent episodes of torsades. Either the magnesium infusion or the increased heart rate have definitely quieted down the torsade episodes. PHYSICAL EXAM: Patient's heart rate has improved into the 90s and 100s. Blood pressure is elevated. Chest exam reveals diminished air entry at the bases. Heart exam reveals first and second heart sounds. No gallop. Exam of extremities did not reveal any edema. Echocardiogram showed normal LV function. ASSESSMENT: Polymorphic VT, probably related to QT prolongation. We will avoid all QT prolonging drugs, bradycardia could be contributing to this. If the heart rate drops below 70, I am going to put him on dopamine and will leave him on the vent for today. MMODL / IJN: [id number] /
--- NOTE | 2018-07-04 15:38 | P.PN ---
Subjective Progress Note Date: 07/04/18 Principal diagnosis: Acute hypoxic respiratory failure most likely secondary to cardiac arrhythmia/ torsade, secondary to Imodium toxicity and overdose. Possible seizure This is a 37-year-old white male with history of anxiety, found by his fiance to be gurgling, and unresponsive with possible seizure activity lasting about 2 minutes. EMS arrived, patient was noted to be confused, there was no evidence of urinary incontinence, no tongue biting, no previous history of seizure disorder, however he does have strong family history of seizure disorder. Yesterday, patient went to the [employer] football game, and he was noted to have extreme and profound shortness of breath while going up to the stadium. He felt he was out of shape for some reason. According to the fiance , she found him gurgling and apparently stiff with eyes rolled back in his head. 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 No history of any drug abuse, but apparently when he was admitted to the medical floor, patient admitted to the nurses that he was taking significant amount of Imodium to get a bit high. His drug screen was positive for benzodiazepines neurological workup on admission has been negative so far. Including CT of the brain and EEG. Patient remains in the meantime on seizure precautions. And he is being followed by neurology on consultation. Shortly after he was admitted to the medical floor, patient apparently had an episode of profound bradycardia rate apparently dropped down to the 40s, A code was called, patient was noted to be in ventricular fibrillation, shocked once, resuscitated, intubated, CPR was given for a short period of time, patient was transferred to the ICU, and this consult was initiated to Dr. Huber who managed his ventilator overnight. Today the patient remains on mechanical ventilation, and his ventilator settings are tidal volume of 550 assist-control rate of 18, FiO2 of 35%, and PEEP of 5. ABG this morning showed a pO2 of 320 pCO2 of 41 pH of 7.49. Rest of the labs were noted to be relatively unremarkable. Patient is on propofol and Versed drip, hence I recommended discontinuation of the Versed drip, and will continue on propofol. Patient also required to be on bicarb drip which I have discontinued this morning after reviewing his ABG. Poison control was notified apparently earlier by the ER physician, and some recommendations were made regarding Imodium overdose. Patient is yet to be seen by cardiology on consultation. Echocardiogram is pending. Patient was reevaluated today on 07/14/2018, he was on mechanical ventilation with ventilator settings unchanged. He was on assist control rate of 18, tidal volume of 550, FiO2 of 35%, and PEEP of 5. Patient was on propofol overnight, and on Versed drip. However this morning we were trying to get the propofol down and we were able to get it down to as low as 5 mcg/kg/m, and we were able to keep him on Versed at 9 mg per hour. Patient was gradually waking up, and we never had a chance to do weaning parameters on the patient because he was still on fairly good dose of sedation including propofol and Versed. Suddenly, the patient started having intermittent episodes of bradycardia followed by abnormal arrhythmia consistent with torsade. Patient had few episodes were in he required defibrillation. Dr. Dominguez/lift driver was also present at the time. He recommended starting the patient on dopamine, but we never had a chance to placed on dopamine because after the patient was fully sedated, on Nimbex, his arrhythmia did resolve, however his blood pressure was noted to be quite high requiring placement on clevidipine drip. Patient was placed on Nimbex as per protocol, fentanyl drip at 50 g per hour, propofol was increased and titrated Versed remained at 10 mg per hour. However as we started the Nimbex, we will be cutting down on propofol and possibly discontinue it, we will likely cut down the Versed to 5 mg per hour. Within 2 hours, the patient had at least 4 episodes of torsade, 2 of them at least required defibrillation. The others were very nonsustained, and did not require any treatment. Patient was given magnesium although his magnesium level was normal. And his potassium level was also in the normal range. Calcium was also normal. Father came in later, and I had a chance to discuss his condition with his father. Chest x-ray is suggestive of left basilar infiltrate or atelectasis. Patient was empirically placed on Zosyn. ABG showed a pO2 of 225, pCO2 41, pH of 7.42. This was on 100% FiO2, hence we dropped him down to 50%. Objective - Vital Signs Vital signs: Vital Signs Temp 98.8 F 07/04/18 12:00 Pulse 110 H 07/04/18 14:30 Resp 17 07/04/18 14:30 BP 150/68 07/04/18 14:30 Pulse Ox 95 07/04/18 14:30 Intake & Output 07/03/18 07/04/18 07/04/18 18:59 06:59 18:59 Intake Total 6428.806 5335.229 1177.084 Output Total 1075 1135 1040 Balance 281.494 1509.229 137.084 Weight 93.9 kg Intake: IV 1335 1801 840 Dextrose 5% in Water 1, 200 000 ml @ 100 mls/hr IV . [id number] ATUL with Sodium Bicarb (1 Meq/ml) 150 ml Rx#:[id number] Magnesium Sulfate-D5w Pmx 100 1 gm In Dextrose/Water 1 100ml.bag @ 100 mls/hr IVPB ONCE ONE Rx#: [id number] Midazolam HCl 100 mg In 35 61 Sodium Chloride 0.9% 80 ml @ 5 MG/HR 5 mls/hr IV .Q20H ATUL Rx#:[id number] Sodium Chloride 0.9% 1, 1100 1300 700 000 ml @ 100 mls/hr IV . Q10H ATUL Rx#:[id number] Sodium Chloride 0.9% 1, 240 140 000 ml @ 20 mls/hr IV . Q24H ATUL Rx#:[id number] levETIRAcetam IV 1,000 mg 100 In Saline 1 100ml.bag @ 400 mls/hr IVPB ONCE STA Rx#:[id number] Intake, IV Titration 428.934 319.229 247.084 Amount Clevidipine Butyrate 25 86.867 mg In Empty Bag 1 bag @ 1 MG/HR 2 mls/hr IV .Q24H ATUL Rx#:[id number] DOPamine DRIP 800 mg In 0.88 Dextrose/Water 1 500ml. bag @ 5 MCG/KG/MIN 17.6 mls/hr IV .Q24H ATUL Rx#: [id number] Empty Bag 1 bag @ 40 MCG/ 83.7 27.9 KG/MIN 22.29 mls/hr IV . Q4H30M ATUL with Propofol 1,000 mg Rx#:[id number] Midazolam HCl 100 mg In 62.833 59.217 63.55 Sodium Chloride 0.9% 80 ml @ 5 MG/HR 5 mls/hr IV .Q20H ATUL Rx#:[id number] Propofol 1,000 mg In 242.401 212.112 95.787 Empty Bag 1 bag @ Titrate IV .Q0M ATUL Rx#: [id number] Sodium Chloride 0.9% 1, 40 20 000 ml @ 20 mls/hr IV . Q24H ATUL Rx#:[id number] Tube Feeding 120 130 90 Other 30 Output: Gastric Drainage 60 Urine 1015 1135 1040 Other: Voiding Method Indwelling Catheter Indwelling Catheter Indwelling Catheter # Voids 1 1 ABP, PAP, CO, CI - Last Documented Arterial Blood Pressure 149/64 - Exam Physical Exam: Revealed a 37-year-old white male, intubated, on mechanical ventilation, in no distress. Endotracheal tube and orogastric tube are intact. Head: Atraumatic, normocephalic. Lymphatics: No lymphadenopathy. HEENT:[Neck is supple.] [No neck masses.] [No thyromegaly.] [No JVD.] PERRLA, EOMI, no icterus. Moist mucous membranes noted. Chest: [Clear throughout, no crackles, no rhonchi, no wheezes.] Cardiac Exam: [Normal S1 and S2, no S3 gallop, no murmur.] Abdomen: [Soft, nontender, no megaly, no rebound, no guarding, normal bowel sounds.] Extremities: [No clubbing, no edema, no cyanosis.] Neurological Exam: I was able to perform a brief neurological exam on the patient when he was on a lower dose of propofol and Versed, and he was appropriate, following all instructions, but generally weak. Psychiatric: Cannot be assessed. Skin: No rashes. - Labs CBC & Chem 7: 07/04/18 04:49 07/04/18 10:48 Labs: Abnormal Lab Results - Last 24 Hours (Table) 07/03/18 07/04/18 07/04/18 Range/Units 18:52 04:49 04:49 RBC 3.87 L (4.30-5.90) m/uL Hgb 11.2 L (13.0-17.5) gm/dL Hct 33.8 L (39.0-53.0) % Neutrophils # 8.3 H (1.3-7.7) k/uL ABG pH (7.35-7.45) ABG pCO2 (35-45) mmHg ABG pO2 (83-108) mmHg ABG HCO3 (21-25) mmol/L ABG Total CO2 (19-24) mmol/L ABG O2 Saturation (94-97) % Creatinine 0.63 L 0.63 L (0.66-1.25) mg/dL Glucose 101 H (74-99) mg/dL Calcium 7.8 L (8.4-10.2) mg/dL Magnesium 2.4 H (1.6-2.3) mg/dL AST 65 H (17-59) U/L ALT 90 H (21-72) U/L Total Protein 6.2 L (6.3-8.2) g/dL Albumin 3.3 L (3.5-5.0) g/dL 07/04/18 07/04/18 Range/Units 07:53 12:19 RBC (4.30-5.90) m/uL Hgb (13.0-17.5) gm/dL Hct (39.0-53.0) % Neutrophils # (1.3-7.7) k/uL ABG pH 7.52 H (7.35-7.45) ABG pCO2 34 L (35-45) mmHg ABG pO2 225 H (83-108) mmHg ABG HCO3 28 H 27 H (21-25) mmol/L ABG Total CO2 29 H 28 H (19-24) mmol/L ABG O2 Saturation 98.4 H 98.4 H (94-97) % Creatinine (0.66-1.25) mg/dL Glucose (74-99) mg/dL Calcium (8.4-10.2) mg/dL Magnesium (1.6-2.3) mg/dL AST (17-59) U/L ALT (21-72) U/L Total Protein (6.3-8.2) g/dL Albumin (3.5-5.0) g/dL Microbiology - Last 24 Hours (Table) 07/03/18 02:40 Urine Culture - Final Urine,Catheterized 07/02/18 14:30 Gram Stain - Preliminary Sputum Sputum Culture - Preliminary Presumptive Staph aureus Assessment and Plan Assessment: Impression: 1 acute hypoxic respiratory failure, most likely secondary to recurrent episodes of arrhythmia, possibly recurrent torsade, likely related to Imodium toxicity and overdose. 2 possible seizure, patient remains on medication for possible seizure as ordered by neurology. 2 drug overdose, Imodium overdose. And toxicity. 3 acute cardiac arrest, most likely secondary to arrhythmia, secondary to Imodium toxicity. 4 possible anoxic encephalopathy, however based on his clinical exam today earlier doubt anoxic encephalopathy at this point. Patient was appropriate even on propofol and Versed. 5 recurrent episodes of arrhythmia including profound sinus bradycardia and intermittent torsade requiring defibrillation. Recommendation: Continue ventilatory support, hemodynamic support, nutritional support, patient was seen by cardiology, please refer to different strips during his code, family is at bedside, and I had a long discussion with his father regarding his condition, they would like the patient to be transferred to a tertiary care center, and I suggested referral to [facility]. Admitting physician was notified. And the process of transfer will take place hopefully in the next few hours. Patient is definitely critically ill, I spent at least an hour and 15 minutes at bedside while the patient was having all the different episodes of arrhythmia/torsade requiring defibrillation. Critical care time is 1 hour and 15 minutes, not including the time spent on procedures/ radial line placement and femoral triple-lumen catheter placement. Time with Patient: Greater than 30
[2018-07-04] MEDS ORDERED: POTASSIUM CHLORIDE 10 MEQ in WATER FOR INJECTION 1 100ML.BAG IVPB STA (16:54)
--- NOTE | 2018-07-04 19:02 | P.PN ---
Subjective Progress Note Date: 07/04/18 This patient is a 37-year-old right-handed white male who was seen in neurology consultation initially on the fourth floor at [facility] for evaluation of possible new onset seizure activity. Patient was evaluated and was recommended close monitoring for workup of new onset of seizure activity. As noted yesterday on his initial presentation the patient had a possible witnessed seizure at home yesterday morning which was noted by his fiance. Apparently she found him in bed and was gurgling with his eyes rolled up into his head and unresponsive. EMS was immediately called to the home and he was found to be postictal when they had arrived. Patient was then transferred by EMS to the emergency room at [facility] for further evaluation. He was seen in the ER by Dr. Smart. He was sent for a computed tomography scan of the brain yesterday which failed to reveal any acute changes. He was admitted to the medical surgical floor for further evaluation. As noted he underwent neurological consultation yesterday afternoon and we had recommended that he undergo EEG as well as MRI of the brain. Apparently the patient was going to the bathroom at about 10:30 PM on 07/02/2018 evening and suddenly became severely bradycardic. Heart rate dropped into the 40's. A code was called and when the ICU staff arrived they found the patient to be in ventricular fibrillation. He was shocked once and apparently they were able to resuscitate him at that time. Apparently the fourth floor nursing staff had started CPR for this patient even prior to the team arriving on the fourth floor. The patient apparently then had seizure-like activity was given 2 doses of Ativan. He was intubated and then transferred to the intensive care unit where he was closely monitored for the next hour as he was unresponsive. The ICU nurse did contact Dr. Donnelly yesterday evening regarding his transferred to the ICU. We immediately gave orders to load the patient with IV Keppra for seizure prophylaxis. Patient is currently on Keppra and is receiving a maintenance dose of IV Keppra 750 mg IV piggyback every 12 hours. The patient was stabilized and placed on IV Diprivan. Poison control was contacted and apparently they did give some instructions to the ICU nursing staff in regards to further management. The patient is now currently seen in the intensive care unit this morning at 8 AM and he is currently intubated on the ventilator and is showing some movement spontaneously. He does not appear to have any active seizure like activity noted at this time at bedside. The business technology teacher is in the room and will be performing his EEG this morning. According to the ICU nursing staff who is monitoring him today in the ICU he has remained very stable overnight. He has had no evidence of breakthrough seizures. He is currently receiving Keppra 750 mg IV piggyback every 12 hours. We've asked for a stat Keppra level to be done this morning. His Keppra level is still pending this morning from the laboratory. We are waiting cardiology consultation regarding this patient's overall cardiac status. As noted yesterday the patient did complain of shortness of breath on Tuesday when he was at a football game. We will need to await further evaluation and recommendations from cardiology in regards to his overall cardiac status. After the patient was intubated and stabilized in the intensive care unit early this morning he was sent for a follow-up computed tomography scan of the brain. This was completed early this morning at 1:48 AM. The results of the CAT scan indicated no acute findings and was reported negative. There was evidence of sinusitis. No changes compared to the study that was done the day before. The patient is currently evaluated in the intensive care unit. He is currently intubated and is on a Diprivan drip at a rate of 30 mics per kilogram per minute. We are waiting further consultation today from pulmonary critical care medicine and cardiology in regards to this patient's overall condition and prognosis. According to the ICU nursing staff they have informed the patient's fianc of his changes yesterday and that he is now intubated and transferred to the intensive care unit for close monitoring. The patient underwent routine EEG which was reviewed yesterday and revealed only mild to moderate degree of slowing. No evidence of any epileptiform discharges. This morning the patient appeared to be much more awake and responsive and was following all simple commands. Early this morning while he was being evaluated by the land acquisition specialist the patient suddenly had intermittent episodes of bradycardia followed by abnormal arrhythmia consistent with torsades. He had several episodes of this and did require defibrillation 1. Cardiology was called to the bedside they had recommended giving him more magnesium. He was placed on Nimbex and only after this did he stopped having recurrent bouts of torsades. The patient was stabilized and then a land acquisition specialist did discuss his findings today with his father who was at bedside. The family requested that the patient be transferred to a tertiary center for more aggressive evaluation and treatment. According to the ICU nursing staff gym the patient is to be transferred to [facility] when a bed becomes available later today. We did discuss all of his findings neurologically in detail with the patient's father was at bedside. He is aware of his sons guarded condition. It was promising that his EEG did not show severe slowing or significant anoxic injury at the time. We will need to follow-up with [facility] in terms of further evaluation and diagnostic workup for this patient. His overall prognosis at this time remains guarded. We will continue to follow the patient closely in the intensive care unit during this admission. We will continue to follow his progress closely in the intensive care unit. His overall condition and prognosis at this time remains very guarded. Case was discussed at length with the patient's father who had come in from out of town to be with this son. We did update him on all of his current neurological findings and test results. We will continue to follow along with the patient as he remains in the intensive care unit. As noted plans are being made to transfer the patient to the [facility] intensive care unit. His overall prognosis at this time remains very guarded. Objective - Vital Signs Vital signs: Vital Signs Temp 98.8 F 07/04/18 12:00 Pulse 103 H 07/04/18 16:30 Resp 18 07/04/18 16:30 BP 143/67 07/04/18 16:30 Pulse Ox 94 L 07/04/18 16:30 Intake & Output 07/03/18 07/04/18 07/04/18 18:59 06:59 18:59 Intake Total 2855.778 1884.229 1529.271 Output Total 1075 1135 1290 Balance 104.985 1740.229 239.271 Weight 93.9 kg 99.6 kg Intake: IV 1335 1801 1080 Dextrose 5% in Water 1, 200 000 ml @ 100 mls/hr IV . [id number] ATUL with Sodium Bicarb (1 Meq/ml) 150 ml Rx#:[id number] Magnesium Sulfate-D5w Pmx 100 1 gm In Dextrose/Water 1 100ml.bag @ 100 mls/hr IVPB ONCE ONE Rx#: [id number] Midazolam HCl 100 mg In 35 61 Sodium Chloride 0.9% 80 ml @ 5 MG/HR 5 mls/hr IV .Q20H ATUL Rx#:[id number] Sodium Chloride 0.9% 1, 1100 1300 900 000 ml @ 100 mls/hr IV . Q10H ATUL Rx#:[id number] Sodium Chloride 0.9% 1, 240 180 000 ml @ 20 mls/hr IV . Q24H ATUL Rx#:[id number] levETIRAcetam IV 1,000 mg 100 In Saline 1 100ml.bag @ 400 mls/hr IVPB ONCE STA Rx#:[id number] Intake, IV Titration 428.934 319.229 359.271 Amount Clevidipine Butyrate 25 136.867 mg In Empty Bag 1 bag @ 1 MG/HR 2 mls/hr IV .Q24H ATUL Rx#:[id number] DOPamine DRIP 800 mg In 0.88 Dextrose/Water 1 500ml. bag @ 5 MCG/KG/MIN 17.6 mls/hr IV .Q24H ATUL Rx#: [id number] Empty Bag 1 bag @ 40 MCG/ 83.7 27.9 KG/MIN 22.29 mls/hr IV . Q4H30M ATUL with Propofol 1,000 mg Rx#:[id number] Midazolam HCl 100 mg In 62.833 59.217 63.55 Sodium Chloride 0.9% 80 ml @ 5 MG/HR 5 mls/hr IV .Q20H ATUL Rx#:[id number] Propofol 1,000 mg In 242.401 212.112 157.974 Empty Bag 1 bag @ Titrate IV .Q0M ATUL Rx#: [id number] Sodium Chloride 0.9% 1, 40 20 000 ml @ 20 mls/hr IV . Q24H ATUL Rx#:[id number] Tube Feeding 120 130 90 Other 30 Output: Gastric Drainage 60 Urine 1015 1135 1290 Other: Voiding Method Indwelling Catheter Indwelling Catheter Indwelling Catheter # Voids 1 1 ABP, PAP, CO, CI - Last Documented Arterial Blood Pressure 155/63 - Exam Physical examination: PHYSICAL EXAMINATION: Patient is resting comfortably and is intubated on the ventilator and is on a Diprivan drip. VITAL SIGNS: Blood pressure is [158/64]. Heart rate is [98]. Respiration is [18] . Temperature is [98.3]. HEENT: Head is atraumatic, neck is supple, there were no carotid bruits. CHEST: Lungs are clear to auscultation and percussion. CARDIAC: S1, S2 normal rate and rhythm. There is no murmur. ABDOMEN: Soft and nontender. Bowel sounds are present. EXTREMITIES: There is no pedal edema. Peripheral pulses are present. Neurological examination: Patient is examined today in the intensive care unit. He is currently intubated on the ventilator and is on a Diprivan drip at a rate of 30 mics. Patient is having some spontaneous movements and does seem to withdraw to painful stimuli. Pupils are sluggish bilaterally. Corneal response was sluggish. He does withdraw to painful stimuli overall 4 extremities. Deep tendon reflexes are hypoactive 1+. There is no Babinski response elicited. - Labs CBC & Chem 7: 07/04/18 04:49 07/04/18 10:48 Labs: Abnormal Lab Results - Last 24 Hours (Table) 07/03/18 07/04/18 07/04/18 Range/Units 18:52 04:49 04:49 RBC 3.87 L (4.30-5.90) m/uL Hgb 11.2 L (13.0-17.5) gm/dL Hct 33.8 L (39.0-53.0) % Neutrophils # 8.3 H (1.3-7.7) k/uL ABG pH (7.35-7.45) ABG pCO2 (35-45) mmHg ABG pO2 (83-108) mmHg ABG HCO3 (21-25) mmol/L ABG Total CO2 (19-24) mmol/L ABG O2 Saturation (94-97) % Creatinine 0.63 L 0.63 L (0.66-1.25) mg/dL Glucose 101 H (74-99) mg/dL Calcium 7.8 L (8.4-10.2) mg/dL Magnesium 2.4 H (1.6-2.3) mg/dL AST 65 H (17-59) U/L ALT 90 H (21-72) U/L Total Protein 6.2 L (6.3-8.2) g/dL Albumin 3.3 L (3.5-5.0) g/dL 07/04/18 07/04/18 Range/Units 07:53 12:19 RBC (4.30-5.90) m/uL Hgb (13.0-17.5) gm/dL Hct (39.0-53.0) % Neutrophils # (1.3-7.7) k/uL ABG pH 7.52 H (7.35-7.45) ABG pCO2 34 L (35-45) mmHg ABG pO2 225 H (83-108) mmHg ABG HCO3 28 H 27 H (21-25) mmol/L ABG Total CO2 29 H 28 H (19-24) mmol/L ABG O2 Saturation 98.4 H 98.4 H (94-97) % Creatinine (0.66-1.25) mg/dL Glucose (74-99) mg/dL Calcium (8.4-10.2) mg/dL Magnesium (1.6-2.3) mg/dL AST (17-59) U/L ALT (21-72) U/L Total Protein (6.3-8.2) g/dL Albumin (3.5-5.0) g/dL Microbiology - Last 24 Hours (Table) 07/03/18 02:40 Urine Culture - Final Urine,Catheterized 07/02/18 14:30 Gram Stain - Preliminary Sputum Sputum Culture - Preliminary Presumptive Staph aureus Assessment and Plan (1) New onset seizure Current Visit: Yes Status: Acute Code(s): R56.9 - UNSPECIFIED CONVULSIONS SNOMED Code(s): 89074418 (2) Drug use Current Visit: Yes Status: Acute Code(s): F19.90 - OTHER PSYCHOACTIVE SUBSTANCE USE, UNSPECIFIED, UNCOMPLICATED SNOMED Code(s): 518182376 Plan: This patient is a 37-year-old right-handed white male who was seen on the medical surgical floor at [facility] for evaluation of possible new onset seizure back on 07/02/2018. Patient was at home in the morning and apparently had an event in which she was gurgling and was unresponsive and was found by his fiance with eyes rolled up into his head and stiff. She immediately called EMS and the patient was transferred by EMS to the emergency room at [facility] yesterday. Patient was seen in the ER by Dr. Smart. On further questioning it was obtained from the ER nurse that the patient had been consuming Lomotil 100 tablets a day apparently to obtain a high. He had been taking this high dose of Lomotil on a regular basis for about a month. He had not taken any Lomotil on Tuesday just prior to going to the football game. The patient was evaluated in the ER and underwent a computed tomography scan of the brain which failed to reveal any acute changes. He was admitted to [facility] care floor on the fourth floor and was seen in neurology consultation yesterday. We have reviewed all of our recommendations with him in detail at that time and he was aware that we wanted to obtain a routine EEG and MRI of the brain today for further evaluation. He was advised of the [place] driving law in regards to seizures and was aware that he could not drive for appeared to 6 months following this recent event. The patient was quite stable yesterday afternoon however at about 10:30 PM he was going to the bathroom and apparently collapsed onto the floor and a code was called. The fourth floor nursing staff started CPR and when the code team arrived they found him to be in ventricular fibrillation. He was shocked once and then apparently went into seizure-like activity. He was given 2 doses of Ativan and was intubated and transferred to the intensive care unit where he is currently residing. The patient is currently on Diprivan drip and remains obtunded. He was sent for a computed tomography scan of the brain early this morning which was reviewed and is negative for any acute changes. He is currently undergoing a routine EEG which she will also be reviewed. The patient had been taking Lomotil 100 tablets daily for the past 1 month which likely is contributed to his current status. He likely has some form of underlying cardiomyopathy which should be further evaluated by cardiology. The patient remains unresponsive on a Diprivan drip at 30 mics. We will continue close monitoring of his condition and we will reevaluate him after he has completed his routine EEG and is seen by cardiology and pulmonary critical care medicine. This patient's overall prognosis at this time remains very guarded. According to the ICU nursing staff voicing control is aware of his current findings of overdose with Lomotil. We will need to follow along with poison control in terms of any further recommendations. His overall prognosis at this time remains very guarded. This patient's overall prognosis at this time remains very guarded. We've instructed the ICU nursing staff to inform the fiance and other family members of his overall neurological status and condition which we will be happy to discuss with them later today. Patient's father was at bedside and he was updated on this patient's overall neurological findings. Due to his rather worsening cardiac status in that he has had several episodes of torsades which did require defibrillation. He remains intubated on the ventilator on a combination of poor fall and Nimbex. Decision was made today to have this patient transferred to a tertiary care Center for higher level of care. He is to be air lifted to [facility] further immediate evaluation and recommendations. His overall prognosis at this time remains very guarded. We will continue close neurological follow-up of this patient in the intensive care unit.
[2018-07-04 19:47] VITALS: RESP 18
[2018-07-04 20:25] VITALS: TEMP 98.2
[2018-07-04 21:03] VITALS: BP 125/69; PULSE 92
--- NOTE | 2018-07-05 00:09 | PCN ---
PROCEDURE NOTE OPERATIVE REPORT: Placement of a right femoral triple-lumen catheter. PREOPERATIVE DIAGNOSES: Acute respiratory failure, and recurrent episodes of torsade requiring defibrillation. POSTOPERATIVE DIAGNOSES: Acute respiratory failure, and recurrent episodes of torsade requiring defibrillation. ANESTHESIA USED: 2 mL of 1 percent lidocaine. DESCRIPTION OF PROCEDURE: The patient was placed in a supine position, the right groin was prepared in a sterile fashion and drapes were applied. The area was locally anesthetized with lidocaine. Then the right femoral vein was cannulated easily, a guidewire was placed, dilated around the guidewire and a triple-lumen catheter was inserted over the guidewire, the guidewire was removed. Good blood flow was noted, and the 3 different ports were patent, the line was secured using 3 point silk sutures. No evidence of any immediate complications. MMODL / IJN: [id number] /
--- NOTE | 2018-07-05 00:09 | OP ---
OPERATIVE REPORT PROCEDURE: Placement of right radial arterial line. PREOPERATIVE DIAGNOSIS: Acute respiratory failure and recurrent episodes of torsade. POSTOPERATIVE DIAGNOSIS: Acute respiratory failure and recurrent episodes of torsade. ANESTHESIA: None deployed. DESCRIPTION OF PROCEDURE: The right wrist was prepared in a sterile fashion and drapes were applied. The right radial artery was palpated, cannulated easily. A guidewire was placed and a Cook catheter was inserted over the guidewire, and the guidewire was removed. Good blood flow and good waveform were noted. No evidence of any immediate complications. The line was secured using 3.0 silk sutures. MMODL / IJN: [id number] /
--- NOTE | 2018-07-05 05:05 | DS ---
DISCHARGE SUMMARY ADDENDUM: Discharge planning more than 35 minutes. MMODL / IJN: [id number] /
--- NOTE | 2018-07-05 10:19 | DS ---
DISCHARGE SUMMARY DISCHARGE SUMMARY/TRANSFER SUMMARY: DATE OF ADMISSION: 07/02/2018 DATE OF TRANSFER: 07/04/2018 FINAL DIAGNOSES: 1. Recurrent episodes of torsades de pointes. 2. Prolonged QT interval. 3. Chronic abuse of Imodium with abrupt cessation. 4. Recurrent seizures. 5. Chronic anxiety disorder. 6. Acute hypoxic respiratory failure requiring ventilator support. HOSPITAL COURSE: This is a pleasant 37-year-old patient of Dr. Vegas. Chronic stable conditions, that of anxiety for which he takes Effexor and Xanax p.r.n. Patient has done heroin in the remote past for a short time, then stopped. Patient for about 4 months has been doing Imodium A-D, taking close to 100 tablets a day, giving him a high. Patient stopped taking for 1 day and what was described at home was like a seizure activity, found to be gurgling, from an airway which was clenched, had to do CPR after calling 911. Patient got admitted. Patient the following day was doing better, but then again collapsed coming out of the bathroom in the evening, found to be in VFib, had to be shocked, had no pulse. Patient has had at least 3-4 episodes of torsades and had to be shocked. A 2D echocardiogram showed preserved LV function. Electrolytes were all good. Patient did get magnesium. Patient was intubated and followed by the workers compensation specialist. Patient has did have an EEG and it was reported to me by the nurse to me today that the EEG came back to be normal. There was no formal results. The patient remained intubated and current IV drugs include IV EVANGELIST atracurium, IV clevidipine, IV dopamine, IV fentanyl, IV Keppra, IV propofol with FiO2 of 15 and PEEP of 5. I spoke at length to the patient's father and because of patient's recurrent cardiac arrest in form of torsades, we decided to transfer patient to higher level of care and to see if anything else could be done. I spoke to the medical intensive care unit fellow and also the cardiac intensive care fellow and patient will be transferred to the Cardiac Intensive Care Unit at [facility]. Patient otherwise was hemodynamically stable. SPECIAL NOTE: Patient had requested that his fiancee should not be told about his Imodium A-D overdose. I did convey this to both the MICU fellow and the cardiac ICU fellow where accepted the patient was transferred. I also conveyed this to patient's father who was present. PHYSICAL EXAM: LUNGS: Fair entry. CARDIOVASCULAR: First and second sounds are normal. The patient is intubated. Labs from today show white count of 10.1, hemoglobin 11.2 potassium 3.9. DISPOSITION: Patient being transferred to [facility], Cardiac Intensive Care Unit, [facility], [address] [place] [address]. CONDITION FOR TRANSFER: Stable. Discharge planning more than 35 minutes. MMODL / IJN: [id number] /
== END 2018-07-05 00:55 | disposition short-term general hospital (02) | DRG 896 ==
LOC: EC 08:04 → 3SUR 10:18 → 4MS4W 10:57 → 6ICU 23:02 → OBSVTOIN 23:03
PROVIDERS: ADMIT Hospitalist; ATTEND Hospitalist
PROC: 5A1945Z Respiratory Ventilation, 24-96 Consecutive Hours (ICD-10-PCS; principal; 2018-07-02)
PROC: 0BH17EZ Insertion of Endotracheal Airway into Trachea, Via Natural or Artificial Opening (ICD-10-PCS; 2018-07-02)
PROC: 5A12012 Performance of Cardiac Output, Single, Manual (ICD-10-PCS; 2018-07-02)
PROC: 0D9670Z Drainage of Stomach with Drainage Device, Via Natural or Artificial Opening (ICD-10-PCS; 2018-07-02)
PROC: 3E0G76Z Introduction of Nutritional Substance into Upper GI, Via Natural or Artificial Opening (ICD-10-PCS; 2018-07-03)
PROC: 06HM33Z Insertion of Infusion Device into Right Femoral Vein, Percutaneous Approach (ICD-10-PCS; 2018-07-04)
PROC: 03HY32Z Insertion of Monitoring Device into Upper Artery, Percutaneous Approach (ICD-10-PCS; 2018-07-05)
PROC: 4A133B1 Monitoring of Arterial Pressure, Peripheral, Percutaneous Approach (ICD-10-PCS; 2018-07-05)
PROC: 4A133J1 Monitoring of Arterial Pulse, Peripheral, Percutaneous Approach (ICD-10-PCS; 2018-07-05)
DX: F19.239 Other psychoactive substance dependence with withdrawal, unspecified (principal); J96.01 Acute respiratory failure with hypoxia; I49.01 Ventricular fibrillation; I46.9 Cardiac arrest, cause unspecified; I47.2 Ventricular tachycardia; I42.9 Cardiomyopathy, unspecified; G40.909 Epilepsy, unspecified, not intractable, without status epilepticus; F41.0 Panic disorder [episodic paroxysmal anxiety]; J32.9 Chronic sinusitis, unspecified; F17.210 Nicotine dependence, cigarettes, uncomplicated; Z79.899 Other long term (current) drug therapy; Z82.0 Family history of epilepsy and other diseases of the nervous system; Y92.009 Unspecified place in unspecified non-institutional (private) residence as the place of occurrence of the external cause; Z82.49 Family history of ischemic heart disease and other diseases of the circulatory system; Z82.69 Family history of other diseases of the musculoskeletal system and connective tissue
CPT/HCPCS: 36415; 36600; 70450; 71045; 71046; 80048; 80053; 80177; 80306; 80320; 81001; 82550; 82553; 82805; 83520; 83605; 83735; 84100; 84132; 84443; 84484; 85025; 85027; 85610; 87070; 87077; 87086; 87186; 87205; 93005; 93306; 94002; 94003; 95816; 96360; 96361; 99285

== ENCOUNTER 2018-11-03 00:26 | Emergency (ER) | payer BC ==
[2018-11-03 00:43] LABS: Glucose,Whole Blood 121 mg/dL (75-99)
--- NOTE | 2018-11-03 00:43 | ED ---
General Adult HPI - General Chief complaint: Nausea/Vomiting/Diarrhea Stated complaint: Dizziness/Nausea Time Seen by Provider: 11/03/18 00:42 Source: patient Mode of arrival: wheelchair Limitations: no limitations - History of Present Illness Initial comments: Issa is a pleasant 37-year-old gentleman with history of seizure disorder for which she was weaned off of his antiepileptics in the fall of 2017. Patient has had no seizures since that time. Patient reports that he's been having trouble sleeping lately and this evening he took 7 or 810 mg melatonin. He fell asleep but woke suddenly a little after midnight feeling nauseated and when he attempted to stand he felt very lightheaded. At that time he decided to come to the emergency department. Upon arrival he reports he feels very lightheaded and nauseated and tired. Patient reports he was using his usual state of health throughout the day yesterday. He reports that he's been taking increasing doses of melatonin due to trouble sleeping. That usually take this much. - Related Data Home Medications Medication Instructions Recorded Confirmed ALPRAZolam 0.5 - 1 mg PO DAILY PRN 03/23/17 07/02/18 Acetaminophen [Tylenol] 650 mg PO Q4H PRN 07/02/18 07/02/18 Ascorbic Acid [Vitamin C] 500 mg PO DAILY 07/02/18 07/02/18 Loperamide [Imodium] 2 mg PO QID PRN 07/02/18 07/02/18 Venlafaxine HCl ER [Effexor Xr] 150 mg PO DAILY 07/02/18 07/02/18 Allergies Allergy/AdvReac Type Severity Reaction Status Date / Time No Known Allergies Allergy Verified 11/03/18 00:31 Review of Systems ROS Statement: Those systems with pertinent positive or pertinent negative responses have been documented in the HPI. ROS Other: All systems not noted in ROS Statement are negative. Past Medical History Past Medical History: No Reported History, Seizure Disorder Additional Past Medical History / Comment(s): possible panic attack, History of Any Multi-Drug Resistant Organisms: None Reported Past Surgical History: Adenoidectomy, Orthopedic Surgery, Tonsillectomy Additional Past Surgical History / Comment(s): knee Past Anesthesia/Blood Transfusion Reactions: No Reported Reaction Past Psychological History: Anxiety Smoking Status: Current every day smoker Past Alcohol Use History: Occasional Past Drug Use History: None Reported - Past Family History Mother Family Medical History: Seizure Disorder Father Additional Family Medical History / Comment(s): back problems, possible heart condition. General Exam - General Exam Comments Initial Comments: Physical Exam GENERAL: Patient is well-developed and well-nourished. Patient is nontoxic and well-hydrated and is in no distress. Patient appears sleepy but wakes to voice and is able to interact appropriately HENT: Normocephalic, Atraumatic. EYES: PERRL, EOMI PULMONARY: Unlabored respirations. No audible rales rhonchi or wheezing was noted. CARDIOVASCULAR: There is a regular rate and rhythm without any murmurs gallops or rubs. ABDOMEN: Obese Soft and nontender with normal bowel sounds. SKIN: Skin is clear with no lesions or rashes and otherwise unremarkable. : Deferred NEUROLOGIC: Patient is alert and oriented x3. Moving all extremities spontaneously MUSCULOSKELETAL: Normal extremities with adequate strength and full range of motion. No lower extremity swelling or edema. No calf tenderness. PSYCHIATRIC: Normal psychiatric evaluation. Limitations: no limitations Limitations: no limitations Course Vital Signs 11/03/18 11/03/18 11/03/18 00:29 01:35 02:26 Temperature 97.8 F Pulse Rate 85 66 61 Respiratory 18 15 18 Rate Blood Pressure 154/94 117/68 116/59 O2 Sat by Pulse 96 96 96 Oximetry 11/03/18 03:32 Temperature 97.9 F Pulse Rate 61 Respiratory 18 Rate Blood Pressure 107/69 O2 Sat by Pulse 96 Oximetry EKG Findings - EKG Comments: EKG Findings:: EKG obtained at 12:39 AM rate is 67 rhythm is sinus at normal axis, normal intervals, ND 162, QRS 90, QTc 458. There are no acute ST elevations depressions evidence of acute ischemia or infarction. Medical Decision Making - Medical Decision Making Patient was seen and evaluated history is obtained from patient and signed patient has a history of one seizure in the past he has been weaned off his seizure medications he did take excessive amount of melatonin and woke up feeling nauseated and dizzy On arrival patient is pale and cool and clammy, he reports nausea and feeling sleepy Labs and imaging were ordered Labs are unremarkable Patient slept for a number of hours, workup didn't find no acute findings Upon waking patient reports he's feeling much better he agrees his symptoms are likely related to excessive melatonin intake. Appropriate medication administration was discussed patient was discharged home in stable condition - Lab Data Result diagrams: 11/03/18 00:41 11/03/18 00:41 Lab Results 11/03/18 11/03/18 11/03/18 Range/Units 00:41 00:41 00:41 WBC 7.6 (3.8-10.6) k/uL RBC 4.51 (4.30-5.90) m/uL Hgb 13.3 (13.0-17.5) gm/dL Hct 39.6 (39.0-53.0) % MCV 87.9 (80.0-100.0) fL MCH 29.5 (25.0-35.0) pg MCHC 33.6 (31.0-37.0) g/dL RDW 12.7 (11.5-15.5) % Plt Count 304 (150-450) k/uL Neutrophils % 43 % Lymphocytes % 35 % Monocytes % 8 % Eosinophils % 11 % Basophils % 1 % Neutrophils # 3.3 (1.3-7.7) k/uL Lymphocytes # 2.6 (1.0-4.8) k/uL Monocytes # 0.6 (0-1.0) k/uL Eosinophils # 0.8 H (0-0.7) k/uL Basophils # 0.1 (0-0.2) k/uL PT (9.0-12.0) sec INR (<1.2) APTT (22.0-30.0) sec Sodium 141 (137-145) mmol/L Potassium 3.8 (3.5-5.1) mmol/L Chloride 106 (98-107) mmol/L Carbon Dioxide 25 (22-30) mmol/L Anion Gap 10 mmol/L BUN 23 H (9-20) mg/dL Creatinine 0.88 (0.66-1.25) mg/dL Est GFR (CKD-EPI)AfAm >90 (>60 ml/min/1.73 sqM) Est GFR (CKD-EPI)NonAf >90 (>60 ml/min/1.73 sqM) Glucose 114 H (74-99) mg/dL POC Glucose (mg/dL) 121 H (75-99) mg/dL POC Glu Maid Supervisor ID Ratna Andrade Plasma Lactic Acid Fuad (0.7-2.0) mmol/L Calcium 9.3 (8.4-10.2) mg/dL Total Bilirubin 0.5 (0.2-1.3) mg/dL AST 23 (17-59) U/L ALT 34 (21-72) U/L Alkaline Phosphatase 116 (38-126) U/L Ammonia (<30) umol/L Total Creatine Kinase (55-170) U/L CK-MB (CK-2) (0.0-2.4) ng/mL CK-MB (CK-2) Rel Index Troponin I (0.000-0.034) ng/mL Total Protein 7.6 (6.3-8.2) g/dL Albumin 4.4 (3.5-5.0) g/dL Amylase 45 (30-110) U/L Lipase 107 (23-300) U/L 11/03/18 11/03/18 11/03/18 Range/Units 00:41 00:41 01:20 WBC (3.8-10.6) k/uL RBC (4.30-5.90) m/uL Hgb (13.0-17.5) gm/dL Hct (39.0-53.0) % MCV (80.0-100.0) fL MCH (25.0-35.0) pg MCHC (31.0-37.0) g/dL RDW (11.5-15.5) % Plt Count (150-450) k/uL Neutrophils % % Lymphocytes % % Monocytes % % Eosinophils % % Basophils % % Neutrophils # (1.3-7.7) k/uL Lymphocytes # (1.0-4.8) k/uL Monocytes # (0-1.0) k/uL Eosinophils # (0-0.7) k/uL Basophils # (0-0.2) k/uL PT 9.4 (9.0-12.0) sec INR 0.9 (<1.2) APTT 23.4 (22.0-30.0) sec Sodium (137-145) mmol/L Potassium (3.5-5.1) mmol/L Chloride (98-107) mmol/L Carbon Dioxide (22-30) mmol/L Anion Gap mmol/L BUN (9-20) mg/dL Creatinine (0.66-1.25) mg/dL Est GFR (CKD-EPI)AfAm (>60 ml/min/1.73 sqM) Est GFR (CKD-EPI)NonAf (>60 ml/min/1.73 sqM) Glucose (74-99) mg/dL POC Glucose (mg/dL) (75-99) mg/dL POC Glu Maid Supervisor ID Plasma Lactic Acid Fuad 0.8 (0.7-2.0) mmol/L Calcium (8.4-10.2) mg/dL Total Bilirubin (0.2-1.3) mg/dL AST (17-59) U/L ALT (21-72) U/L Alkaline Phosphatase (38-126) U/L Ammonia 27 (<30) umol/L Total Creatine Kinase 107 (55-170) U/L CK-MB (CK-2) 0.9 (0.0-2.4) ng/mL CK-MB (CK-2) Rel Index 0.8 Troponin I <0.012 (0.000-0.034) ng/mL Total Protein (6.3-8.2) g/dL Albumin (3.5-5.0) g/dL Amylase (30-110) U/L Lipase (23-300) U/L Disposition Clinical Impression: Medication reaction Disposition: HOME SELF-CARE Condition: Stable Instructions (If sedation given, give patient instructions): Melatonin (By mouth) Is patient prescribed a controlled substance at d/c from ED?: No Referrals: Enoc Vegas MD [Primary Care Provider] - 1-2 days
[2018-11-03] MEDS: SODIUM CHLORIDE 0.9% 1,000 ML IV STA (00:59)
[2018-11-03 01:12] LABS: Basophils # (A) 0.1 k/uL (0-0.2); Basophils % (A) 1 %; Eosinophils # (A) 0.8 k/uL (0-0.7); Eosinophils % (A) 11 %; HCT 39.6 % (39.0-53.0); HGB 13.3 gm/dL (13.0-17.5); Lymphocytes # (A) 2.6 k/uL (1.0-4.8); Lymphocytes % (A) 35 %; MCH 29.5 pg (25.0-35.0); MCHC 33.6 g/dL (31.0-37.0); MCV 87.9 fL (80.0-100.0); Mean Platelet Volume 6.2; Monocytes # (A) 0.6 k/uL (0-1.0); Monocytes % (A) 8 %; Neutrophils # (A) 3.3 k/uL (1.3-7.7); Neutrophils % (A) 43 %; Platelet Count 304 k/uL (150-450); RBC 4.51 m/uL (4.30-5.90); RDW 12.7 % (11.5-15.5); WBC 7.6 k/uL (3.8-10.6)
[2018-11-03 01:22] LABS: ALT 34 U/L (21-72); AST 23 U/L (17-59); Albumin 4.4 g/dL (3.5-5.0); Alkaline Phosphatase 116 U/L (38-126); Amylase 45 U/L (30-110); Anion Gap 10 mmol/L; Blood Urea Nitrogen 23 mg/dL (9-20); Calcium 9.3 mg/dL (8.4-10.2); Carbon Dioxide 25 mmol/L (22-30); Chloride 106 mmol/L (98-107); Glucose 114 mg/dL (74-99); Lipase 107 U/L (23-300); Potassium 3.8 mmol/L (3.5-5.1); Sodium 141 mmol/L (137-145); Total Bilirubin 0.5 mg/dL (0.2-1.3); Total Protein 7.6 g/dL (6.3-8.2)
[2018-11-03 01:30] LABS: INR 0.9 (<1.2); Partial Thromboplastin Time 23.4 sec (22.0-30.0); Prothrombin Time 9.4 sec (9.0-12.0)
--- NOTE | 2018-11-03 01:30 | CT ---
EXAM: CT Head Without Intravenous Contrast CLINICAL HISTORY: altered TECHNIQUE: Axial computed tomography images of the head/brain without intravenous contrast. CTDI is 49.2 mGy and DLP is 1227.4 mGy-cm. This CT exam was performed using one or more of the following dose reduction techniques: automated exposure control, adjustment of the mA and/or kV according to patient size, and/or use of iterative reconstruction technique. COMPARISON: 07/03/18 FINDINGS: Brain: Unremarkable. No hemorrhage. No significant white matter disease. No edema. Ventricles: Unremarkable. No ventriculomegaly. Bones/joints: Unremarkable. No acute fracture. Soft tissues: Unremarkable. Sinuses: Mucosal thickening is noted in the maxillary sinus and the ethmoid air cells and sphenoid sinus. This appears similar to the prior study. The mastoids are clear.. Mastoid air cells: Unremarkable as visualized. No mastoid effusion. IMPRESSION: No focal intracranial abnormality identified. No change from prior study
--- NOTE | 2018-11-03 01:31 | XR ---
EXAM: XR Chest, 1 View CLINICAL HISTORY: Pain TECHNIQUE: Frontal view of the chest. COMPARISON: 07/14/18 FINDINGS: Lungs: Unremarkable. No consolidation. Pleural space: Unremarkable. No pneumothorax. Heart: Unremarkable. No cardiomegaly. Mediastinum: Unremarkable. Bones/joints: Unremarkable. IMPRESSION: Normal chest x-ray.
--- NOTE | 2018-11-03 01:35 | XR ---
EXAM: XR Abdomen, 2 Views CLINICAL HISTORY: pain TECHNIQUE: Frontal view of the abdomen/pelvis with upright view of the abdomen. COMPARISON: No relevant prior studies available. FINDINGS: Intraperitoneal space: No free air. Gastrointestinal tract: Unremarkable. No dilation. Bones/joints: Unremarkable. IMPRESSION: Normal abdominal x-rays.
[2018-11-03 01:42] LABS: Creatine Kinase 107 U/L (55-170)
[2018-11-03 01:43] LABS: Lactic Acid, Venous 0.8 mmol/L (0.7-2.0)
[2018-11-03 01:55] LABS: Creatine Kinase MB 0.9 ng/mL (0.0-2.4); Troponin I <0.012 ng/mL (0.000-0.034)
[2018-11-03 02:27] VITALS: PULSE 61; RESP 18
[2018-11-03 03:34] VITALS: BP 107/69; TEMP 97.9
== END 2018-11-03 03:37 | disposition home or self-care (01) ==
LOC: EC 00:26
DX: R42 Dizziness and giddiness (principal); R11.0 Nausea; T50.995A Adverse effect of other drugs, medicaments and biological substances, initial encounter; F41.9 Anxiety disorder, unspecified; F17.200 Nicotine dependence, unspecified, uncomplicated; Z79.899 Other long term (current) drug therapy
CPT/HCPCS: 36415; 70450; 71045; 74018; 80053; 82140; 82150; 82550; 82553; 83605; 83690; 84484; 85025; 85610; 85730; 93005; 96360; 99284